=== PATIENT | male | born 1955 | race Caucasian/White ===

== ENCOUNTER → 2016-07-07 | Outpatient (CLI) | payer BC, OTHER ==
[~2016-07-07] MED LIST: ATOR-22 PO; BYS/5 PO; CETI10TA84 PO; DEXL60CA4 PO; LEVO200T6 PO; MONT1TAB5 PO; ONDA8TAB6 PO
[2016-07-07 18:37] LABS: BLOOD UREA NITROGEN 24 mg/dl (7-18); BUN/CREATININE RATIO 13.9 (10-20); CARBON DIOXIDE 28 mmol/L (21-32); CHLORIDE 104 mmol/L (98-107); GLUCOSE 81 mg/dl (70-99); POTASSIUM 4.7 mmol/L (3.5-5.1); SODIUM 139 mmol/L (136-145)
== END | disposition home or self-care (01) ==
LOC: C.LABMFLN 11:38
PROVIDERS: ATTEND Urology
DX: N17.9 Acute kidney failure, unspecified (principal)

== ENCOUNTER → 2016-08-10 | Outpatient (CLI) | payer BC ==
[2016-08-10 17:55] LABS: ALT/SGPT 27 U/L (12-78); BLOOD UREA NITROGEN 32 mg/dl (7-18); BUN/CREATININE RATIO 20.2 (10-20); CALCIUM 8.6 mg/dl (8.5-10.1); CARBON DIOXIDE 25 mmol/L (21-32); CHLORIDE 109 mmol/L (98-107); GLUCOSE 96 mg/dl (70-99); SODIUM 142 mmol/L (136-145)
[2016-08-10 17:58] LABS: ALB/GLOB RATIO 0.9 (0.9-2); ALKALINE PHOSPHATASE 79 U/L (45-117); AST/SGOT 17 U/L (15-37)
[2016-08-10 18:04] LABS: BASO % 1.2 %; BASO ABS # 0.05 K/uL (0-0.2); COMPLETE YES; EOS % 10.5 %; HEMATOCRIT 38.6 % (42-52); LYMPH % 21.4 %; LYMPH ABS # 0.88 K/uL (1.2-3.4); MEAN CELL VOLUME 82.7 fL (80-100); MEAN CORPUSCULAR HEMOGLOBIN 27.2 pg (25-34); MEAN CORPUSCULAR HGB CONC 32.9 g/dl (32-36); MONO % 17.5 %; NEUT % 49.4 %; PLATELET COUNT 146 K/uL (130-400); RED BLOOD COUNT 4.67 M/uL (4.7-6.1); WHITE BLOOD COUNT 4.11 K/uL (4.8-10.8)
== END | disposition home or self-care (01) ==
LOC: C.LABMFLN 10:55
PROVIDERS: ATTEND Internal Medicine Hematology & Oncology
DX: C82.03 Follicular lymphoma grade I, intra-abdominal lymph nodes (principal)

== ENCOUNTER 2016-08-11 07:27 | Inpatient (IN) | payer BC, OTHER ==
[2016-07-27 15:18] VITALS: BMI 38.0
--- NOTE | 2016-07-27 15:33 | PAT Medication Instructions ---
Service Date Jul 27, 2016. Current Home Medication List Atorvastatin (Lipitor), 20 MG PO QPM Cetirizine (Zyrtec), 10 MG PO HS Dexlansoprazole (Dexilant), 60 MG PO QAM Montelukast Sodium (Montelukast Sodium), 1 TAB PO HS Nebivolol Hcl (Bystolic), 5 MG PO HS Ondansetron Hcl (Zofran), 8 MG PO Q6H PRN for Nausea Medication Instructions For Your Scheduled Surgery - Take the following medications the morning of surgery with a sip of water OTHERWISE NOTHING TO EAT OR DRINK AFTER MIDNIGHT: Dexlansoprazole (Dexilant), 60 MG PO QAM Ondansetron Hcl (Zofran), 8 MG PO Q6H PRN for Nausea - Take the following medications as scheduled the night before surgery: Atorvastatin (Lipitor), 20 MG PO QPM Cetirizine (Zyrtec), 10 MG PO HS Montelukast Sodium (Montelukast Sodium), 1 TAB PO HS Nebivolol Hcl (Bystolic), 5 MG PO HS Ondansetron Hcl (Zofran), 8 MG PO Q6H PRN for Nausea If you have any questions please call us at [phone] or [phone] or [phone]
[2016-07-27 16:07] LABS: BASO % 1.1 %; BASO ABS # 0.05 K/uL (0-0.2); COMPLETE YES; EOS % 10.2 %; HEMATOCRIT 37.2 % (42-52); LYMPH % 13.6 %; LYMPH ABS # 0.63 K/uL (1.2-3.4); MEAN CORPUSCULAR HEMOGLOBIN 27.2 pg (25-34); MEAN CORPUSCULAR HGB CONC 33.6 g/dl (32-36); NEUT % 59.1 %; PLATELET COUNT 133 K/uL (130-400); RED BLOOD COUNT 4.59 M/uL (4.7-6.1); WHITE BLOOD COUNT 4.62 K/uL (4.8-10.8)
[2016-07-27 16:25] LABS: BUN/CREATININE RATIO 16.4 (10-20); CALCIUM 8.8 mg/dl (8.5-10.1); CREATININE 1.7 mg/dl (0.60-1.40); POTASSIUM 5.1 mmol/L (3.5-5.1)
[~2016-08-11] VITALS: Ht 188 cm; Wt 133.3 kg
[2016-08-11] VITALS (9 sets, daily range): BP systolic 125–157; BP diastolic 74–90; PULSE 62–76; TEMP 36.5–36.8; O2SAT 91–98; Ht 188 cm; Wt 133.3 kg
[~2016-08-11 07:27] MED LIST changes: +CEFAZOLIN 3000 MG/65 ML D5W IV SCH; +LACTATED RINGER'S 1000ML 1,000 ML IV SCH; -LEVO200T6 PO
[2016-08-11] MEDS ORDERED: LIDOCAINE/EPINEPHRINE 1% 20 ML VIAL ONE (08:46)
[2016-08-11] MEDS ORDERED: THROMBIN 5000 UNITS KIT ONE (08:47)
[2016-08-11] MEDS ORDERED: BACITRACIN OINT 15 GM TUBE ONE (08:47)
[2016-08-11] MEDS ORDERED: LACTATED RINGER'S 1000ML 1,000 ML IV PRN (08:57)
[2016-08-11] MEDS ORDERED: FENTANYL CITRATE INJ 50 MCG/1 ML 2 ML VIAL IV PRN (09:00)
[2016-08-11] MEDS ORDERED: ONDANSETRON INJ 2 MG/ML 2 ML VIAL IV PRN ×2 (09:00→12:00)
--- NOTE | 2016-08-11 09:00 | History & Physical Bridge Note ---
H&P Re-Evaluation Bridge Note: I have examined the patient, reviewed the History & Physical and in the interval since the performance of the History & Physical I have noted the following changes of clinical significance: No changes noted
[2016-08-11] MEDS ORDERED: MIDAZOLAM HCL 1 MG/ML 2ML VIAL ONE (09:03)
[2016-08-11] MEDS ORDERED: FENTANYL CITRATE INJ 50 MCG/1 ML 2 ML VIAL ONE (09:03)
[2016-08-11] MEDS ORDERED: HYDROmorphone INJ 2 MG/ML SYR/VIAL ONE (09:47)
[2016-08-11] MEDS ORDERED: PROPOFOL IV EMULSION 10 MG/ML 20 ML VIAL IV ONE (10:08)
[2016-08-11] MEDS ORDERED: ROCURONIUM BROMIDE 10 MG/ML 5 ML VIAL ONE (10:08)
[2016-08-11] MEDS ORDERED: ONDANSETRON INJ 2 MG/ML 2 ML VIAL ONE ×2 (10:08→10:51)
[2016-08-11] MEDS ORDERED: DEXAMETHASONE SOD INJ 4 MG/ML VIAL ONE (10:51)
[2016-08-11] MEDS ORDERED: SUCCINYLCHOLINE CHLORIDE 20 MG/ML 10 ML VIAL IV ONE (10:51)
[2016-08-11] MEDS ORDERED: THROMBIN 5,000 UNITS (RECOMBINANT) TOP ONE (11:47)
[2016-08-11] MEDS ORDERED: SURGICEL ABSORB HEMOSTAT 2IN X 14IN TOP ONE (11:47)
--- NOTE | 2016-08-11 11:55 | [facility] Operative Report ---
Operative Report Operative Date Aug 11, 2016. Pre-Operative Diagnosis Papillary Thyroid Cancer Post-Operative Diagnosis same Procedure(s) Performed Total Thyroidectomy with central neck dissection Surgeon Dr. Joesph Gaines Fabricator Artificial Breast Surgeon(s) Fatuma Alicea PA-C; Harrison Marcum MSIII Estimated Blood Loss 20 ml Findings 1. MNG WITH FIRM ISTHMUS NODULE 2. MULTIPLE SUSPICIOUS CENTRAL LYMPH NODES (LEVEL 6) Specimens a. Thyroid-single stitch=left superior pole;double stitich= right superior poll. b. Central neck dissection. I attest to the content of the Intraoperative Record and any orders documented therein. Any exceptions are noted below.
[2016-08-11] MEDS ORDERED: GLYCOPYRROLATE INJ 0.2 MG/ML VIAL ONE (12:36)
--- NOTE | 2016-08-11 12:58 | OPERATIVE REPORT ---
DATE OF OPERATION: 08/11/2016 PREOPERATIVE DIAGNOSIS: Papillary thyroid carcinoma. POSTOPERATIVE DIAGNOSIS: Same. PROCEDURE: Total thyroidectomy with central neck dissection. SURGEON: Dr. Gaines. PAINT ROLLER ASSEMBLER: Viktoria Alicea. ESTIMATED BLOOD LOSS: 20 mL. FINDINGS: 1. Multinodular thyroid gland with a hard nodule involving the isthmus. 2. Suspicious lymph nodes within the central neck compartment with purplish black coloration suspicious for metastatic papillary thyroid carcinoma. SPECIMENS: 1. Total thyroid for permanent pathological assessment. 2. Central neck dissection for permanent pathological assessment. DRAINS: None. COMPLICATIONS: None. INDICATIONS FOR THE PROCEDURE: The patient is a 61-year-old male who has a history of renal cell carcinoma and intraoperatively diagnosed follicular lymphoma, who on his tumor surveillance had a CT PET scan which showed some suspicious thyroid nodules. His medical oncologist, Dr. Dowling, ordered an ultrasound guided fine needle aspiration biopsy of a suspicious isthmus nodule and this was suspicious for papillary thyroid carcinoma. The patient presents for the above-mentioned procedure on an inpatient elective basis. DETAILS OF PROCEDURE: After informed consent had been obtained from the patient, the patient was wheeled to the operating room and placed on the operating table in the supine position. Monitors were placed after induction of general endotracheal anesthesia with a size 7 nerve integrity monitored endotracheal tube. The patient's head and neck were gently extended and a marking pen was used to outline the planned 5 cm incision in a natural skin crease 2 fingerbreadths above the level of clavicles. A total of 3 mL of 1% lidocaine with 1:100,000 epinephrine used to inject the skin and subcutaneous tissues overlying the planned incision site. The skin of the neck and chest were then prepped and draped in the usual sterile fashion. A #15 scalpel was then used to make the incision through the skin, subcutaneous tissue, and platysma. Subplatysmal flaps were raised superiorly to the level of thyroid notch and inferiorly to the level of clavicles. The median raphe of the strap muscles was divided using Bovie electrocautery. The strap muscles were retracted laterally and the right thyroid lobe was first addressed. The middle thyroid vein, as well as superior and inferior thyroid vascular pedicles were divided adjacent to the thyroid capsule using a Harmonic scalpel. Dissection was carried lateral to medial with care to identify and preserve the superior and inferior parathyroid candidates. Of note, it was difficult to identify the right recurrent laryngeal nerve due to the patient's extensive adipose tissue. However, the nerve monitor did not go off at all during the dissection. The left side was then addressed in a similar fashion. There was a large pyramidal lobe that was also dissected superiorly off of the trachea. The thyroid gland was from the trachea at Sal's ligament using a Harmonic scalpel. Of note, the patient had a small multinodular goiter with a firm thyroid nodule involving the isthmus posteriorly. The specimen was oriented and sent off for permanent pathological assessment. The central compartment of the neck was inspected and there were several purplish black lymph nodes that were suspicious for metastatic papillary thyroid carcinoma. A central neck dissection was performed using primarily a Harmonic scalpel going from the limits of dissection laterally from the carotid artery to the contralateral carotid artery and from the cricoid cartilage down to the mediastinum. Of note, most of the suspicious lymph nodes were deep within the mediastinal fat tissue. The largest lymph nodes grossly measured approximately 1-1.5 cm in greatest dimension. It looked as if there were 2-3 suspicious nodes grossly. The central neck dissection was sent off for permanent pathological assessment. There were 2 separate specimens obtained, as there was a very deep mediastinal node that was dissected and sent as part of the specimen. The wound was then copiously irrigated and suctioned. Bipolar electrocautery was used to achieve adequate hemostasis. Hemostasis was confirmed with a Valsalva maneuver. Small pieces of Surgicel followed by topical spray thrombin were placed into the bilateral tracheoesophageal grooves for added hemostatic effect. The strap muscles were then reapproximated using a simple running interlocked 3-0 Vicryl suture. The platysma was then closed with several deep 4-0 Monocryl sutures. The skin was then closed with a simple running subcuticular 5-0 Monocryl suture. The incision was cleansed and dried. Dermabond was applied to the incision. This marked the end of the case. The patient tolerated the procedure well. There were no apparent complications. The patient was extubated and transferred to recovery room in stable condition. I attest to the content of the Intraoperative Record and any orders documented therein. Any exceptio ns are noted below.
--- NOTE | 2016-08-11 13:05 | Anesthesiology Progress Note ---
Anesthesia Post Op Note Date & Time Aug 11, 2016 at 13:04 Vital Signs Pain Intensity: 0 Vital Signs Past 12 Hours Date Time Temp Pulse Resp B/P Pulse Ox O2 Delivery O2 Flow Rate FiO2 08/11/16 12:58 67 16 08/11/16 12:58 67 16 158/91 93 08/11/16 12:53 64 15 156/94 93 08/11/16 12:53 66 15 08/11/16 12:52 68 16 94 08/11/16 12:52 68 16 08/11/16 12:48 158/87 08/11/16 12:47 61 16 97 08/11/16 12:47 61 16 08/11/16 12:43 153/97 08/11/16 12:42 66 16 08/11/16 12:42 67 16 98 08/11/16 12:38 151/98 08/11/16 12:37 70 14 97 08/11/16 12:37 68 14 08/11/16 12:33 154/103 08/11/16 12:32 69 14 08/11/16 12:32 36.0 68 16 165/97 100 Mask 10 08/11/16 12:32 70 14 97 08/11/16 07:50 36.8 76 16 157/78 97 Room Air Notes Mental Status: alert / awake / arousable, participated in evaluation Pt Amnestic to Procedure: Yes Nausea / Vomiting: adequately controlled Pain: adequately controlled Airway Patency, RR, SpO2: stable & adequate BP & HR: stable & adequate Hydration State: stable & adequate Anesthetic Complications: no major complications apparent Pt doing well.
[2016-08-11] MEDS ORDERED: LACTATED RINGER'S 1000ML 1,000 ML IV SCH (15:00)
[2016-08-11] MEDS: HYDROCODONE/ACETAMOPHEN 5/325MG TAB PO PRN ×2 (16:29→21:28)
[2016-08-11 18:39] LABS: CALCIUM 8.6 mg/dl (8.5-10.1); MAGNESIUM 1.9 mg/dl (1.8-2.4); PHOSPHORUS 2.9 mg/dl (2.5-4.9)
[2016-08-11] MEDS ORDERED: NURSING DECISION MEDICATION ORDER SCH (20:00)
[2016-08-12 01:21] LABS: CALCIUM 8.1 mg/dl (8.5-10.1); MAGNESIUM 1.8 mg/dl (1.8-2.4); PHOSPHORUS 3.7 mg/dl (2.5-4.9)
[2016-08-12 03:41] VITALS: BP 142/75; PULSE 65; TEMP 36.5; O2SAT 91
[2016-08-12] MEDS ORDERED: LEVOTHYROXINE 200 MCG TAB PO SCH (06:00)
--- NOTE | 2016-08-12 06:12 | Medical Student: [facility] ---
Medical Student Progress Note Mr. Pugh is 1 day s/p total thyroidectomy and central neck dissection by Dr. Gaines. He is feeling good today and is not having any pain. He has not had pain medication since last night. He is tolerating mechanical soft diet. He is ambulating to bathroom to urinate independently. He reports not having any bowel movements though nursing has one small BM recorded. I/O 1750/1395 voiding on own. No drains. He is on 200mcg Levothyroxine. His last calcium level overnight was 8.1, down from 8.6 before. Denies numbness , tingling, spasms or confusion. Phosphorus 3.7, Mg 1.8, albumin 3.4. ROS: Denies fever, chills, cp, sob, nausea, vomiting, abdominal pain, calf tenderness. VS T 36.5, HR 65, RR 18, BP 142/75, O2 91 RA PE: gen: NAD, a&ox3, resting comfortably in bed HEENT: PERRLA, EOMI, 5cm horizontal incision at mid-neck c/d/i, slight hoarseness to voice, mucus membranes moist Cardiac: RRR, no murmurs, rubs or gallops Lungs: CTAB, no wheezes, rales or ronchi Abd: soft, nontender, no hepatosplenomegaly, hypoactive bowel sounds Ext: no calf tenderness, sensation grossly intact BUE and BLE Assessment: Mr. Pugh is stable 1 day s/p total thyroidectomy and central neck dissection, despite slightly low calcium 8.1. Plan: 1. Calcium 8.1, trending down. Consider PO calcium supplement. Recheck calcium, mag, phosphorus and albumin level this AM. Pending stable levels, consider d/c to home with clinic f/u in 2 weeks. 2. Continue routine post-op care, advance diet to mechanical softs as tolerated (Harrison Marcum) AGREE WITH MARITZA CASON NOTE ABOVE. PATIENT WITHOUT ANY COMPLAINTS THIS MORNING. VOICE WNL. INCISION C/D/I WITHOUT HEMATOMA. CALCIUM MILDLY LOW AT 8.1. WILL CHECK 6AM LABS AND DECIDE ON CALCIUM/VIT. D SUPPLEMENTATION AT THAT TIME. ANTICIPATE D/C LATER TODAY. (Joesph Gaines MD)
[2016-08-12 07:08] LABS: CALCIUM 8.3 mg/dl (8.5-10.1); PHOSPHORUS 4.5 mg/dl (2.5-4.9)
--- NOTE | 2016-08-12 07:15 | Discharge Instructions ---
Discharge Instructions Admission Reason for Admission: Thyroid Cancer Discharge Discharge Diagnosis / Problem: SAME Discharge Goals Goal(s): Improve disease control Activity Recommendations Activity Limitations: as noted below 1. MAY TAKE UP TO 1-2WEEKS OFF FROM WORK IF NEEDED 2. KEEP INCISION DRY FOR 1WEEK 3. LIGHT ACTIVITY FOR 2WEEKS 4. NO DRIVING WHILE ON NARCOTIC PAIN MEDS . Instructions / Follow-Up Instructions / Follow-Up CALL WITH ANY NUMBNESS/TINGLING ALONG LIPS/FINGERS/TOES AND/OR MUSCLE SPASMS/ CRAMPS Current Hospital Diet Patient's current hospital diet: Low Fiber Diet Discharge Diet Recommended Diet: Regular Diet Procedures Procedures Performed: Total Thyroidectomy with central neck dissection Pending Studies Studies pending at discharge: no Medical Emergencies . Who to Call and When: Medical Emergencies: If at any time you feel your situation is an emergency, please call 911 immediately. . Non-Emergent Contact Non-Emergency issues call your: Surgeon . . "Provider Documentation" section prepared by Joesph Gaines. VTE Core Measure Inpt VTE Proph given/why not?: SCD's
--- NOTE | 2016-08-12 07:33 | DISCHARGE SUMMARY ---
DATE OF DISCHARGE: 08/12/2016. ADMISSION DIAGNOSIS: Thyroid cancer. DISCHARGE DIAGNOSIS: Same. HOSPITAL COURSE: The patient is a 61-year-old male who was incidentally found to have suspicious lesions in his thyroid gland on a CT PET scan for surveillance of follicular lymphoma and primary clear cell carcinoma of the left kidney. He underwent ultrasound guidance fine needle aspiration biopsy of suspicious thyroid nodule which unfortunately showed papillary thyroid carcinoma. He presents for total thyroidectomy. The patient was taken to the operating room on 08/11/2016 for total thyroidectomy. Intraoperatively there were some suspicious nodes within the level 6 and a central neck dissection was performed along with the total thyroidectomy. Postoperatively he did well and had a normal voice. He had a mildly low calcium that went from 8.6 to 8.1 and then increased to 8.3. He was therefore discharged to home on postoperative day #1 without any calcium or vitamin D supplementation. He was asked to call my office if he develops any numbness or tingling along his lips, fingers, or toes and/or any involuntary muscle spasms or cramping. He should keep his incision dry for 1 week. He has a postoperative appointment on postoperative day #6. He was started on Synthroid 200 mcg based on his weight. He has a new patient appointment with endocrinology as well in approximately 2 weeks. He was discharged to home in satisfactory condition with the new medications of Synthroid 200 mcg daily as well as [place] 5 mg/325 mg 1-2 tablets p.o. q. 4 hours p.r.n.
[2016-08-12 07:46] VITALS: BP 122/68; PULSE 91; TEMP 36.5; O2SAT 91
[2016-08-12 10:45] VITALS: BP 122/68; PULSE 91; TEMP 36.5; O2SAT 91
[2016-08-26] MEDS ORDERED: LEVO200T6 PO (14:10)
== END 2016-08-12 11:50 | disposition home or self-care (01) | DRG 626 ==
LOC: ENRESERVDT → ENRESERVTM → C.ACU 07:27 → C.MSN 12:57
PROC: 0GTK0ZZ Resection of Thyroid Gland, Open Approach (ICD-10-PCS; principal; 2016-08-11 09:15)
PROC: 07B20ZX Excision of Left Neck Lymphatic, Open Approach, Diagnostic (ICD-10-PCS; principal; 2016-08-11 09:15)
PROC: 07B10ZX Excision of Right Neck Lymphatic, Open Approach, Diagnostic (ICD-10-PCS; principal; 2016-08-11 09:15)
DX: C73 Malignant neoplasm of thyroid gland (principal); C85.90 Non-Hodgkin lymphoma, unspecified, unspecified site; E04.2 Nontoxic multinodular goiter; N18.9 Chronic kidney disease, unspecified; I12.9 Hypertensive chronic kidney disease with stage 1 through stage 4 chronic kidney disease, or unspecified chronic kidney disease; K21.9 Gastro-esophageal reflux disease without esophagitis; E78.00 Pure hypercholesterolemia, unspecified; N40.0 Benign prostatic hyperplasia without lower urinary tract symptoms; J30.9 Allergic rhinitis, unspecified; G47.33 Obstructive sleep apnea (adult) (pediatric); E66.9 Obesity, unspecified; Z99.89 Dependence on other enabling machines and devices; Z90.5 Acquired absence of kidney; Z68.38 Body mass index [BMI] 38.0-38.9, adult; Z85.528 Personal history of other malignant neoplasm of kidney; Z87.891 Personal history of nicotine dependence; Z79.899 Other long term (current) drug therapy

== ENCOUNTER → 2016-08-26 | Outpatient (CLI) | payer BC ==
[~2016-08-26] MED LIST changes: -CEFAZOLIN 3000 MG/65 ML D5W IV SCH; -LACTATED RINGER'S 1000ML 1,000 ML IV SCH; +LEVO200T6 PO
[2016-08-26 13:48] VITALS: BP 123/83; PULSE 84; TEMP 36.8; O2SAT 92
--- NOTE | 2016-08-26 15:46 | Radiation Oncology Follow-Up ---
Radiation Oncology Follow-Up Date of Visit Aug 26, 2016. (Zuleika Cheema PA-C) Radiation Completion Date 07/26/16 (Zuleika Cheema PA-C) Diagnosis (1) Follicular lymphoma Onset Date: 04/08/2016 Stage: l Permanent Comment: Incidental finding of lymphoma at the time of nephrectomy and lymph node evaluation. 04/08/2016. Status post completion of radiation therapy 07/26/2015 received 3000 cGy Last Edited By: Zuleika Cheema on Aug 02, 2016 13:02 (2) Primary clear cell carcinoma of left kidney Onset Date: 04/08/2016 Stage: l Permanent Comment: Status post left nephrectomy 04/08/2016 Last Edited By: Zuleika Cheema on Aug 02, 2016 13:03 (3) Thyroid cancer Onset Date: 06/22/2016 Location: isthmus and left lobe Histology Subtype: papillary Stage: lll Permanent Comment: Abnormal finding on PET scan Status post FNA 06/22/2016 revealing papillary carcinoma Status post total thyroidectomy Stage pT3 pN1a M0 Plan for radioactive iodine Last Edited By: Zuleika Cheema on Aug 26, 2016 15:36 (Zuleika Cheema PA-C) History of Present Illness Mr. Pugh is a 61-year-old gentleman who recently presented with hematuria. He was in consultation by Dr. Antony Olvera. He subsequently underwent a CT urogram on 04/10/2016 which revealed a 6.5 cm heterogeneously enhancing mass arising from the interpolar left kidney. The CT scan did not show any evidence of a retroperitoneal adenopathy or evidence of metastatic disease. He subsequently had a CT chest on 03/22/2016 which showed no evidence of any metastatic disease. The patient subsequently underwent a left radical nephrectomy and lymph node dissection on 04/08/2016 which revealed a clear cell renal cell carcinoma of the left kidney measuring 5 cm in the greatest dimension that was unifocal. The tumor was grade 2, there was no evidence of lymphovascular space invasion and the margins were negative. The tumor was confined to the kidney. It was staged as a pT1bN0. 5 lymph nodes were examined and there was no evidence of metastatic renal cell carcinoma. However , pathology did note that to hilar lymph nodes in the main kidney specimen and 3 lymph nodes in the separate left hilar lymph node resection did reveal evidence of follicular lymphoma that was low grade. The patient subsequently was referred to Dr. Trevor Dowling from medical oncology who recommended no adjuvant therapy for the renal cancer but did recommend a staging PET/CT scan and bone marrow biopsy for the follicular lymphoma. The PET/CT scan was completed on 05/17/2016 which revealed several foci of increased uptake in the thyroid gland but no other evidence of distant metastatic disease. The patient did also have a bone marrow biopsy completed on 06/01/2016 which only revealed mild normocytic hypochromatic anemia but no evidence of lymphomatous involvement. Dr. Dowling recommended consultation with radiation therapy regarding management of the follicular lymphoma. We are now seeing the patient in consultation to discuss the role of radiation therapy. Overall, the patient is doing relatively well. He denies any constitutional symptoms for lymphoma including drenching night sweats/fevers or weight loss. The patient has no other complaints at this point. His case was discussed at tumor board. Ultimately the decision was to treat with radiation alone to the periaortic lymph nodes (Zuleika Cheema PA-C) Interim History He's been doing well over the past month. He does have fatigue. He denied any abdominal discomfort. His had no nausea or vomiting. There no changes in bowel habits. He had been found to have an abnormality on his PET scan which led to an FNA of the thyroid on 06/22/2016. This unfortunately revealed a papillary carcinoma. He then underwent a total thyroidectomy 08/11/2016. Pathology revealed papillary carcinoma. The lesion was 2 cm in size. Margins were involved by carcinoma at the isthmus. There was extra thyroid extension. His staging was pT3 pN1a. He has been referred to endocrinology. There are plans for him to undergo radioactive iodine therapy. His only complaint is fatigue. He therefore not as active as he had been. He has gained approximately 30 pounds since April. He is on thyroid hormone replacement. (Zuleika Cheema PA-C) Allergies Coded Allergies: No Known Allergies (Verified , NONE, 08/11/16) Home Medications Scheduled Atorvastatin (Lipitor), 20 MG PO QPM Cetirizine (Zyrtec), 10 MG PO HS Dexlansoprazole (Dexilant), 60 MG PO QAM Levothyroxine Sodium (Levothyroxine Sodium), 1 TAB PO DAILY Montelukast Sodium (Montelukast Sodium), 1 TAB PO HS Nebivolol Hcl (Bystolic), 5 MG PO HS Review of Systems Gastrointestinal: Symptoms: WNL Oral: Symptoms: No Problems Respiratory: Symptoms: WNL Urinary: Symptoms: WNL Skin: Symptoms: No Problems (Zuleika Cheema PA-C) Physical Exam Vital Signs Date Time Temp Pulse Resp B/P Pulse Ox O2 Delivery O2 Flow Rate FiO2 08/26/16 13:48 36.8 84 16 123/83 92 Fatigue: None General Appearance: no apparent distress Eyes: normal inspection, EOMI ENT: hearing grossly normal Neck: + pertinent finding (well-healed incision of the anterior neck. There is no erythema or edema. There are no signs of infection. There is no ecchymosis. ) Respiratory/Chest: lungs clear, no respiratory distress, no accessory muscle use Cardiovascular: regular rate, rhythm, no gallop, no murmur Abdomen: non tender, soft, no organomegaly Neurologic/Psychiatric: no motor/sensory deficits, alert, normal mood/affect Skin: warm/dry Lymphatic: no adenopathy (Zuleika Cheema PA-C) Laboratory Studies Test 06/10/16 14:35 06/10/16 16:50 07/27/16 15:50 08/10/16 16:34 Total Bilirubin 0.5 mg/dl (0.2-1) 0.3 mg/dl (0.2-1) Direct Bilirubin 0.2 mg/dl (0-0.2) Aspartate Amino Transferase (AST) 14 U/L (15-37) 17 U/L (15-37) Alanine Aminotransferase (ALT) 19 U/L (12-78) 27 U/L (12-78) Alkaline Phosphatase 78 U/L (45-117) 79 U/L (45-117) Total Protein 7.3 gm/dl (6.4-8.2) 7.5 gm/dl (6.4-8.2) Globulin 4.2 gm/dl (2.5-4.0) 3.9 gm/dl (2.5-4.0) Albumin/Globulin Ratio 0.7 (0.9-2) 0.9 (0.9-2) Influenza Type A (RT-PCR) Neg for Influ A (NEG) Influenza Type B (RT-PCR) Neg for Influ B (NEG) White Blood Count 4.62 K/uL (4.8-10.8) 4.11 K/uL (4.8-10.8) Red Blood Count 4.59 M/uL (4.7-6.1) 4.67 M/uL (4.7-6.1) Hemoglobin 12.5 g/dL (14.0-18.0) 12.7 g/dL (14.0-18.0) Hematocrit 37.2 % (42-52) 38.6 % (42-52) Mean Corpuscular Volume 81.0 fL (80-100) 82.7 fL (80-100) Mean Corpuscular Hemoglobin 27.2 pg (25-34) 27.2 pg (25-34) Mean Corpuscular Hemoglobin Concent 33.6 g/dl (32-36) 32.9 g/dl (32-36) Platelet Count 133 K/uL (130-400) 146 K/uL (130-400) Mean Platelet Volume 10.0 fL (7.4-10.4) 10.0 fL (7.4-10.4) Neutrophils (%) (Auto) 59.1 % 49.4 % Lymphocytes (%) (Auto) 13.6 % 21.4 % Monocytes (%) (Auto) 16.0 % 17.5 % Eosinophils (%) (Auto) 10.2 % 10.5 % Basophils (%) (Auto) 1.1 % 1.2 % Neutrophils # (Auto) 2.73 K/uL (1.4-6.5) 2.03 K/uL (1.4-6.5) Lymphocytes # (Auto) 0.63 K/uL (1.2-3.4) 0.88 K/uL (1.2-3.4) Monocytes # (Auto) 0.74 K/uL (0.11-0.59) 0.72 K/uL (0.11-0.59) Eosinophils # (Auto) 0.47 K/uL (0-0.5) 0.43 K/uL (0-0.5) Basophils # (Auto) 0.05 K/uL (0-0.2) 0.05 K/uL (0-0.2) RDW Standard Deviation 43.2 fL (36.4-46.3) 45.8 fL (36.4-46.3) RDW Coefficient of Variation 14.7 % (11.5-14.5) 15.2 % (11.5-14.5) Immature Granulocyte % (Auto) 0.0 % 0.0 % Immature Granulocyte # (Auto) 0.00 K/uL (0.00-0.02) 0.00 K/uL (0.00-0.02) Sodium Level 143 mmol/L (136-145) 142 mmol/L (136-145) Potassium Level 5.1 mmol/L (3.5-5.1) 5.0 mmol/L (3.5-5.1) Chloride Level 107 mmol/L (98-107) 109 mmol/L (98-107) Carbon Dioxide Level 28 mmol/L (21-32) 25 mmol/L (21-32) Anion Gap 8.0 mmol/L (3-11) 8.0 mmol/L (3-11) Blood Urea Nitrogen 28 mg/dl (7-18) 32 mg/dl (7-18) Creatinine 1.70 mg/dl (0.60-1.40) 1.60 mg/dl (0.60-1.40) Est Creatinine Clear Calc Drug Dose 67.1 ml/min Estimated GFR () 49.7 53.5 Estimated GFR (Non- 42.9 46.1 BUN/Creatinine Ratio 16.4 (10-20) 20.2 (10-20) Random Glucose 87 mg/dl (70-99) 96 mg/dl (70-99) Lactate Dehydrogenase 126 U/L (87-241) Test 08/12/16 00:18 08/12/16 06:13 Calcium Level 8.1 mg/dl (8.5-10.1) 8.3 mg/dl (8.5-10.1) Phosphorus Level 3.7 mg/dl (2.5-4.9) 4.5 mg/dl (2.5-4.9) Magnesium Level 1.8 mg/dl (1.8-2.4) 2.0 mg/dl (1.8-2.4) Albumin 3.4 gm/dl (3.4-5.0) 3.4 gm/dl (3.4-5.0) (Zuleika Cheema PA-C) Assessment & Plan Plan: The patient is also seen today by Dr. Quispe. He'll be undergoing radioactive iodine therapy. He has a follow-up appointment with Dr. Dowling as well as Dr. Olvera. In reviewing their information the patient will have recheck scanning approximately every 6 months for the next 2 years. He may return to our office as needed. He may call if he has a questions or concerns we'll be happy to see him. There are plans for him to see Dr. Becker in the future for genetic counseling. (Zuleika Cheema PA-C) I agree with note created by Zuleika Cheema PA-C. I reviewed the patient's chart and information with her. I have examined and evaluated the patient. I reviewed relevant clinical information and answered the patient's and/or family' s questions. (Veeral. Quispe MD) Total Time In Follow-Up I spent 20 minutes speaking to the patient performing examination. I spent 15 minutes reviewing information in completing this note. (Zuleika Cheema PA-C) I spent 15 minutes examining and counseling the patient. (Veeral. Quispe MD) Copy To Ramses Barnes PA-C; Joesph Gaines MD; Antony Olvera MD, Urology; Trevor Bae MD
== END | disposition home or self-care (01) ==
LOC: C.ONC 13:41
PROVIDERS: ATTEND Radiology Radiation Oncology
DX: Z08 Encounter for follow-up examination after completed treatment for malignant neoplasm (principal); Z92.3 Personal history of irradiation; Z85.72 Personal history of non-Hodgkin lymphomas

== ENCOUNTER → 2016-08-31 | Outpatient (CLI) | payer BC ==
[~2016-08-31] MED LIST changes: -ONDA8TAB6 PO
[2016-08-31 18:49] LABS: BLOOD UREA NITROGEN 29 mg/dl (7-18); BUN/CREATININE RATIO 17.9 (10-20); CALCIUM 8.7 mg/dl (8.5-10.1); CARBON DIOXIDE 24 mmol/L (21-32); CHLORIDE 105 mmol/L (98-107); GLUCOSE 93 mg/dl (70-99); PHOSPHORUS 3.5 mg/dl (2.5-4.9); POTASSIUM 4.3 mmol/L (3.5-5.1); SODIUM 137 mmol/L (136-145)
[2016-08-31 18:51] LABS: HEMATOCRIT 37.4 % (42-52); MEAN CELL VOLUME 79.4 fL (80-100); MEAN CORPUSCULAR HEMOGLOBIN 27.4 pg (25-34); MEAN CORPUSCULAR HGB CONC 34.5 g/dl (32-36); MEAN PLATELET VOLUME 9.9 fL (7.4-10.4); PLATELET COUNT 153 K/uL (130-400); RED BLOOD COUNT 4.71 M/uL (4.7-6.1); WHITE BLOOD COUNT 4.55 K/uL (4.8-10.8)
[2016-08-31 19:14] LABS: URINE APPEARANCE CLEAR (CLEAR); URINE BILIRUBIN NEG (NEG); URINE COLOR YELLOW; URINE EPITHELIAL CELL AUTO 0-5 /lpf (0-5); URINE NITRITE NEG (NEG); URINE SPECIFIC GRAVITY 1.024 (1.000-1.030); UROBILINOGEN NEG (NEG)
[2016-08-31 19:35] LABS: MANUAL MICROSCOPIC REQUIRED? NO; REVIEW REQ? NO
== END | disposition home or self-care (01) ==
LOC: C.LABMFLN 11:36
PROVIDERS: ATTEND Internal Medicine Nephrology
DX: N17.9 Acute kidney failure, unspecified (principal)

== ENCOUNTER → 2016-10-22 | Outpatient (CLI) | payer BC ==
[2016-10-22 18:09] LABS: ALT/SGPT 35 U/L (12-78); AST/SGOT 18 U/L (15-37); BLOOD UREA NITROGEN 27 mg/dl (7-18); BUN/CREATININE RATIO 16.6 (10-20); CALCIUM 8.7 mg/dl (8.5-10.1); CARBON DIOXIDE 29 mmol/L (21-32); CHLORIDE 108 mmol/L (98-107); GLUCOSE 98 mg/dl (70-99); POTASSIUM 4.4 mmol/L (3.5-5.1); SODIUM 141 mmol/L (136-145)
[2016-10-22 18:11] LABS: ALB/GLOB RATIO 0.9 (0.9-2); ALKALINE PHOSPHATASE 86 U/L (45-117)
== END | disposition home or self-care (01) ==
LOC: C.LABMFLN 11:46
PROVIDERS: ATTEND Urology
DX: N17.9 Acute kidney failure, unspecified (principal)

== ENCOUNTER → 2016-10-26 | Outpatient (CLI) | payer BC ==
--- NOTE | 2016-10-26 15:41 | DIAGNOSTIC IMAGING REPORT ---
CHEST 2 VIEWS ROUTINE CLINICAL HISTORY: N17.9 Acute kidney injury SHORTNESS OF BREATH COMPARISON STUDY: 06/08/2016 FINDINGS: The cardiac and mediastinal contours remain stable. There is stable elevation/eventration of the right hemidiaphragm. There is no failure. There is no focal pulmonary consolidation. There is stable right basilar atelectasis.[ IMPRESSION: Stable elevation/eventration of the right hemidiaphragm. No acute findings. Electronically signed by: Leopoldo Jiang M.D. 10/26/2016 3:39 PM Dictated Date/Time: 10/26/2016 3:38 PM
== END | disposition home or self-care (01) ==
LOC: C.RAD 15:05
PROVIDERS: ATTEND Urology
DX: N17.9 Acute kidney failure, unspecified (principal)

== ENCOUNTER → 2016-11-10 | Outpatient (CLI) | payer BC ==
[2016-11-10 17:50] LABS: BASO % 0.5 %; BASO ABS # 0.02 K/uL (0-0.2); COMPLETE YES; EOS % 5.5 %; LYMPH % 36.1 %; MEAN CELL VOLUME 81.8 fL (80-100); MEAN CORPUSCULAR HEMOGLOBIN 26.1 pg (25-34); MEAN PLATELET VOLUME 10.2 fL (7.4-10.4); MONO % 10.4 %; NEUT % 47.5 %; PLATELET COUNT 182 K/uL (130-400); RED BLOOD COUNT 5.01 M/uL (4.7-6.1); WHITE BLOOD COUNT 4.15 K/uL (4.8-10.8)
[2016-11-10 18:27] LABS: ALT/SGPT 33 U/L (12-78); AST/SGOT 18 U/L (15-37); BLOOD UREA NITROGEN 28 mg/dl (7-18); BUN/CREATININE RATIO 17.8 (10-20); CALCIUM 8.7 mg/dl (8.5-10.1); CARBON DIOXIDE 29 mmol/L (21-32); CHLORIDE 107 mmol/L (98-107); GLUCOSE 106 mg/dl (70-99); POTASSIUM 4.4 mmol/L (3.5-5.1); SODIUM 140 mmol/L (136-145)
[2016-11-10 18:30] LABS: ALB/GLOB RATIO 1.1 (0.9-2); ALKALINE PHOSPHATASE 80 U/L (45-117)
== END | disposition home or self-care (01) ==
LOC: C.LABMFLN 13:21
PROVIDERS: ATTEND Internal Medicine Hematology & Oncology
DX: C82.03 Follicular lymphoma grade I, intra-abdominal lymph nodes (principal)

== ENCOUNTER → 2017-02-10 | Outpatient (CLI) | payer BC ==
[2017-02-10 18:12] LABS: ALT/SGPT 31 U/L (12-78); AST/SGOT 22 U/L (15-37); BLOOD UREA NITROGEN 30 mg/dl (7-18); BUN/CREATININE RATIO 20.2 (10-20); CALCIUM 8.9 mg/dl (8.5-10.1); CARBON DIOXIDE 27 mmol/L (21-32); CHLORIDE 106 mmol/L (98-107); GLUCOSE 78 mg/dl (70-99); POTASSIUM 4.5 mmol/L (3.5-5.1); SODIUM 139 mmol/L (136-145)
[2017-02-10 18:15] LABS: ALKALINE PHOSPHATASE 76 U/L (45-117); BASO % 0.4 %; BASO ABS # 0.02 K/uL (0-0.2); COMPLETE YES; EOS % 4.5 %; HEMATOCRIT 40.6 % (42-52); IG% 0.2 %; LYMPH % 31.9 %; LYMPH ABS # 1.63 K/uL (1.2-3.4); MEAN CELL VOLUME 80.7 fL (80-100); MEAN CORPUSCULAR HEMOGLOBIN 26.4 pg (25-34); MEAN CORPUSCULAR HGB CONC 32.8 g/dl (32-36); MEAN PLATELET VOLUME 10.6 fL (7.4-10.4); MONO % 11.5 %; NEUT % 51.5 %; PLATELET COUNT 168 K/uL (130-400); RED BLOOD COUNT 5.03 M/uL (4.7-6.1); WHITE BLOOD COUNT 5.11 K/uL (4.8-10.8)
== END | disposition home or self-care (01) ==
LOC: C.LABMFLN 14:52
PROVIDERS: ATTEND Internal Medicine Hematology & Oncology
DX: C82.03 Follicular lymphoma grade I, intra-abdominal lymph nodes (principal)

== ENCOUNTER → 2017-02-14 | Outpatient (CLI) | payer BC ==
[~2017-02-14] MED LIST changes: +OPTIRAY 320 IV PRN
--- NOTE | 2017-02-14 09:25 | DIAGNOSTIC IMAGING REPORT ---
(CHEST) THORAX WITH CT DOSE: 2415.13 mGy.cm HISTORY: Lymphoma LYMPHOMA TECHNIQUE: Multiaxial CT images of the chest were performed following the intravenous administration of contrast. A dose lowering technique was utilized adhering to the principles of ALARA. COMPARISON: 03/18/2016. FINDINGS: stable minimal atelectatic change right base. No significant parenchymal nodularity. Several small mediastinal and hilar nodes slightly diminished in prominence in the prior study. At this time no significant adenopathy is appreciated. The thoracic aorta is normal in course and caliber. Multiple hepatic cysts are again noted. IMPRESSION: No significant abnormality identified within the chest. Improved from the prior study. No significant adenopathy at the current time. The above report was generated using voice recognition software. It may contain grammatical, syntax or spelling errors. Electronically signed by: Faizan Bonner M.D. 02/14/2017 9:24 AM Dictated Date/Time: 02/14/2017 9:20 AM
--- NOTE | 2017-02-14 09:31 | DIAGNOSTIC IMAGING REPORT ---
CT SCAN OF THE ABDOMEN AND PELVIS WITH IV CONTRAST CLINICAL HISTORY: Lymphoma. COMPARISON STUDY: Abdominal CT dated 04/17/2016. PET/CT dated 05/17/2016. TECHNIQUE: Following the IV administration of 93 cc of Optiray 320, CT scan of the abdomen and pelvis is performed from the lung bases to the proximal femora. Images are reviewed in the axial, sagittal, and coronal planes. IV contrast was administered without complication. Automated dose control exposure was utilized. A dose lowering technique was utilized adhering to the principles of ALARA. FINDINGS: Lung bases: The heart is normal in size and without pericardial effusion. There is elevation of the right hemidiaphragm with associated atelectasis. The lung bases are otherwise clear. There is a small hiatal hernia. Liver: The contrast-enhanced liver is enlarged, measuring 23.7 cm in length. The liver demonstrates diffusely diminished attenuation consistent with hepatic steatosis. There is no intrahepatic biliary ductal dilatation. The hepatic veins and portal veins are patent. There are numerous hepatic cysts measure up to 3.1 cm. Additional subcentimeter hypodensities also likely represent cysts but are too small for definitive characterization. Gallbladder: Surgically absent noting clips in the gallbladder fossa. Spleen: Normal in size and attenuation measure 11.7 cm in length. Pancreas: Unremarkable. Adrenal glands: Unremarkable. Kidneys: The left kidney is surgically absent. The contrast enhanced right kidney is normal in size and without hydronephrosis. The right kidney enhances homogeneously. Abdominal vasculature: The abdominal aorta is normal in course and caliber noting mild atherosclerotic calcification. Bowel: The small bowel and colon are normal in course and caliber. The appendix is well-visualized and normal. Peritoneum: There is no intraperitoneal free air or abdominal ascites. There is a small fat-containing umbilical hernia. Lymphadenopathy: None. Pelvic viscera: The bladder, prostate, and seminal vesicles are normal as visualized. Skeletal structures: The skeletal structures are osteopenic. Mild lumbosacral spondylosis is observed. No lytic or blastic lesions are seen. IMPRESSION: 1. There are no pathologically enlarged lymph nodes identified in the abdomen or pelvis. 2. The spleen is normal in size. 3. No acute infectious or inflammatory findings are identified. 4. Hepatomegaly and hepatic steatosis. 5. Status post left nephrectomy. 6. Additional findings as above. Electronically signed by: Henri Gutierrez M.D. 02/14/2017 9:29 AM Dictated Date/Time: 02/14/2017 9:23 AM
== END | disposition home or self-care (01) ==
LOC: C.CTS 08:51
PROVIDERS: ATTEND Internal Medicine Hematology & Oncology
DX: C73 Malignant neoplasm of thyroid gland (principal); C82.03 Follicular lymphoma grade I, intra-abdominal lymph nodes; R16.0 Hepatomegaly, not elsewhere classified; K76.0 Fatty (change of) liver, not elsewhere classified; Z90.5 Acquired absence of kidney

== ENCOUNTER → 2017-02-21 | Outpatient (CLI) | payer BC ==
[~2017-02-21] MED LIST changes: -OPTIRAY 320 IV PRN
[2017-02-21 13:56] LABS: ALT/SGPT 32 U/L (12-78); AST/SGOT 19 U/L (15-37); BLOOD UREA NITROGEN 27 mg/dl (7-18); CALCIUM 8.7 mg/dl (8.5-10.1); CARBON DIOXIDE 24 mmol/L (21-32); CHLORIDE 109 mmol/L (98-107); GLUCOSE 100 mg/dl (70-99); SODIUM 141 mmol/L (136-145)
[2017-02-21 14:00] LABS: INSULIN FASTING 25.2 mU/L (3-25)
[2017-02-21 14:06] LABS: ALB/GLOB RATIO 0.9 (0.9-2); ALKALINE PHOSPHATASE 85 U/L (45-117); PHOSPHORUS 2.9 mg/dl (2.5-4.9); THYROID STIMULATING HORMONE 0.019 uIu/ml (0.300-4.500)
[2017-02-21 14:14] LABS: ESTIMATED AVERAGE GLUCOSE 117 mg/dl; HA1C FLAG Normal (Normal)
[2017-02-21 14:30] LABS: BASO % 0.5 %; BASO ABS # 0.02 K/uL (0-0.2); COMPLETE YES; EOS % 6.3 %; HEMATOCRIT 40.7 % (42-52); IG% 0.3 %; LYMPH % 29.1 %; MEAN CELL VOLUME 79.5 fL (80-100); MEAN CORPUSCULAR HGB CONC 33.9 g/dl (32-36); MEAN PLATELET VOLUME 10.1 fL (7.4-10.4); MONO % 9.8 %; PLATELET COUNT 162 K/uL (130-400); RED BLOOD COUNT 5.12 M/uL (4.7-6.1); WHITE BLOOD COUNT 3.78 K/uL (4.8-10.8)
== END | disposition home or self-care (01) ==
LOC: C.LABMFLN 07:14
PROVIDERS: ATTEND Internal Medicine Endocrinology, Diabetes & Metabolism
DX: C73 Malignant neoplasm of thyroid gland (principal); I12.9 Hypertensive chronic kidney disease with stage 1 through stage 4 chronic kidney disease, or unspecified chronic kidney disease; N18.3 Chronic kidney disease, stage 3 (moderate)

== ENCOUNTER → 2017-03-08 | Outpatient (CLI) | payer BC ==
[2017-03-08 17:52] LABS: URINE APPEARANCE CLEAR (CLEAR); URINE BILIRUBIN NEG (NEG); URINE COLOR YELLOW; URINE NITRITE NEG (NEG); URINE SPECIFIC GRAVITY 1.017 (1.000-1.030); UROBILINOGEN NEG (NEG)
[2017-03-08 18:00] LABS: MANUAL MICROSCOPIC REQUIRED? NO; REVIEW REQ? NO
== END | disposition home or self-care (01) ==
LOC: C.LABMFLN 15:47
PROVIDERS: ATTEND Internal Medicine Nephrology
DX: N18.3 Chronic kidney disease, stage 3 (moderate) (principal)

== ENCOUNTER → 2017-04-04 | Outpatient (CLI) | payer BC ==
[2017-04-04 18:12] LABS: ALT/SGPT 33 U/L (12-78); AST/SGOT 19 U/L (15-37); BLOOD UREA NITROGEN 34 mg/dl (7-18); BUN/CREATININE RATIO 24.6 (10-20); CALCIUM 8.3 mg/dl (8.5-10.1); CARBON DIOXIDE 26 mmol/L (21-32); CHLORIDE 107 mmol/L (98-107); GLUCOSE 88 mg/dl (70-99); POTASSIUM 4.4 mmol/L (3.5-5.1); SODIUM 140 mmol/L (136-145)
[2017-04-04 18:23] LABS: ALKALINE PHOSPHATASE 83 U/L (45-117); PHOSPHORUS 3.2 mg/dl (2.5-4.9); THYROID STIMULATING HORMONE 0.018 uIu/ml (0.300-4.500)
== END | disposition home or self-care (01) ==
LOC: C.LABMFLN 14:48
PROVIDERS: ATTEND Internal Medicine Endocrinology, Diabetes & Metabolism
DX: C73 Malignant neoplasm of thyroid gland (principal); I10 Essential (primary) hypertension; C64.9 Malignant neoplasm of unspecified kidney, except renal pelvis

== ENCOUNTER → 2017-04-26 | Outpatient (CLI) | payer BC ==
--- NOTE | 2017-04-26 15:44 | DIAGNOSTIC IMAGING REPORT ---
CHEST 2 VIEWS ROUTINE CLINICAL HISTORY: C64.9 Renal cell [id number] COMPARISON STUDY: 10/26/2016 FINDINGS: The bones soft tissues and hemidiaphragms are normal. The cardiomediastinal silhouette is normal. The lungs are clear. The pulmonary vasculature is normal. IMPRESSION: Negative chest. The above report was generated using voice recognition software. It may contain grammatical, syntax or spelling errors. Electronically signed by: Faizan Bonner M.D. 04/26/2017 3:43 PM Dictated Date/Time: 04/26/2017 3:42 PM
== END | disposition home or self-care (01) ==
LOC: C.RAD 15:18
PROVIDERS: ATTEND Urology
DX: C64.9 Malignant neoplasm of unspecified kidney, except renal pelvis (principal)

== ENCOUNTER → 2017-06-01 | Outpatient (CLI) | payer BC | END | disposition home or self-care (01) | LOC: C.LABMFLN 09:02 | PROVIDERS: ATTEND Internal Medicine Endocrinology, Diabetes & Metabolism | DX: R73.03 Prediabetes (principal) ==

== ENCOUNTER → 2017-07-07 | Outpatient (CLI) | payer BC | END | disposition home or self-care (01) | LOC: C.LABMFLN 12:18 | PROVIDERS: ATTEND Internal Medicine Endocrinology, Diabetes & Metabolism | DX: E89.0 Postprocedural hypothyroidism (principal) ==

== ENCOUNTER → 2017-08-11 | Outpatient (CLI) | payer BC ==
[2017-08-11 17:46] LABS: BASO % 0.8 %; BASO ABS # 0.03 K/uL (0-0.2); EOS % 7.2 %; EOS ABS # 0.27 K/uL (0-0.5); HEMATOCRIT 40.1 % (42-52); HEMOGLOBIN 13.3 g/dL (14.0-18.0); IG# 0.01 K/uL (0.00-0.02); LYMPH % 31.3 %; LYMPH ABS # 1.18 K/uL (1.2-3.4); MEAN CELL VOLUME 84.4 fL (80-100); MEAN CORPUSCULAR HGB CONC 33.2 g/dl (32-36); MEAN PLATELET VOLUME 10.5 fL (7.4-10.4); MONO % 10.3 %; MONO ABS # 0.39 K/uL (0.11-0.59); NEUT % 50.1 %; NEUT ABS # 1.89 K/uL (1.4-6.5); PLATELET COUNT 159 K/uL (130-400); RED CELL DISTRIBUTION WIDTH CV 15.4 % (11.5-14.5); RED CELL DISTRIBUTION WIDTH SD 47.6 fL (36.4-46.3); WHITE BLOOD COUNT 3.77 K/uL (4.8-10.8)
[2017-08-11 18:07] LABS: ALBUMIN 3.7 gm/dl (3.4-5.0); ALT/SGPT 30 U/L (12-78); AST/SGOT 18 U/L (15-37); BLOOD UREA NITROGEN 40 mg/dl (7-18); CALCIUM 8.8 mg/dl (8.5-10.1); CARBON DIOXIDE 27 mmol/L (21-32); GLUCOSE 79 mg/dl (70-99); POTASSIUM 4.4 mmol/L (3.5-5.1); SODIUM 137 mmol/L (136-145)
[2017-08-11 18:09] LABS: ALKALINE PHOSPHATASE 79 U/L (45-117); TOTAL PROTEIN 7.9 gm/dl (6.4-8.2)
== END | disposition home or self-care (01) ==
LOC: C.LABMFLN 12:56
PROVIDERS: ATTEND Internal Medicine Hematology & Oncology
DX: C82.03 Follicular lymphoma grade I, intra-abdominal lymph nodes (principal)

== ENCOUNTER → 2017-09-05 | Outpatient (CLI) | payer BC ==
[2017-09-05 13:19] LABS: ALBUMIN 3.5 gm/dl (3.4-5.0); BLOOD UREA NITROGEN 36 mg/dl (7-18); CALCIUM 9.1 mg/dl (8.5-10.1); CARBON DIOXIDE 25 mmol/L (21-32); CREATININE 1.45 mg/dl (0.60-1.40); GLUCOSE 94 mg/dl (70-99); POTASSIUM 4.3 mmol/L (3.5-5.1); SODIUM 137 mmol/L (136-145)
== END | disposition home or self-care (01) ==
LOC: C.LABMFLN 09:59
PROVIDERS: ATTEND Internal Medicine Endocrinology, Diabetes & Metabolism
DX: N18.3 Chronic kidney disease, stage 3 (moderate) (principal); C73 Malignant neoplasm of thyroid gland

== ENCOUNTER → 2017-09-22 | Outpatient (CLI) | payer BC | END | disposition home or self-care (01) | LOC: C.LAB1850 13:12 | PROVIDERS: ATTEND Internal Medicine Endocrinology, Diabetes & Metabolism | DX: R53.83 Other fatigue (principal); R73.03 Prediabetes ==

== ENCOUNTER → 2017-09-26 | Outpatient (CLI) | payer BC ==
--- NOTE | 2017-09-27 08:23 | DIAGNOSTIC IMAGING REPORT ---
ULTRASOUND SOFT TISSUES NECK CLINICAL HISTORY: Status post thyroidectomy for papillary carcinoma. COMPARISON STUDY: Thyroid ultrasound dated 06/11/2016. TECHNIQUE: Real-time, grayscale, and color Doppler sonography of the thyroid bed is performed utilizing a high-frequency linear transducer. Images reviewed in the transverse and longitudinal planes. FINDINGS: The thyroid gland is surgically absent. No abnormality is identified in the right thyroid bed. There is a complex solid and cystic nodule within or inferior to the left thyroid bed. This measures 2.1 x 1.5 x 1.3 cm and shows internal flow on color imaging. This previously measured 1.8 x 1.2 x 1.2 cm. No regional lymphadenopathy is seen. IMPRESSION: 1. There are interval postoperative changes from thyroidectomy as compared to 06/11/2016. 2. No abnormality is identified in the right thyroid bed and there is no regional lymphadenopathy. 3. A solid and cystic structure within or inferior to left thyroid bed has minimally increased in size from 06/11/2016, now measuring 2.1 x 1.5 x 1.3 cm (previously measured 1.8 x 1.2 x 1.2 cm). This remains pathologically indeterminant and continued attention at follow-up is recommended. Dictated: 09/27/2017 8:05 AM Transcribed: 09/27/2017 8:23 AM ROD_Rosina Electronically signed by: Henri Gutierrez M.D. 09/27/2017 8:34 AM Dictated Date/Time: 09/27/2017 8:05 AM
== END | disposition home or self-care (01) ==
LOC: C.ULTR 07:06
PROVIDERS: ATTEND Internal Medicine Endocrinology, Diabetes & Metabolism
DX: C73 Malignant neoplasm of thyroid gland (principal)

== ENCOUNTER → 2017-10-04 | Outpatient (CLI) | payer BC ==
--- NOTE | 2017-10-04 13:40 | DIAGNOSTIC IMAGING REPORT ---
ULTRASOUND GUIDED FINE NEEDLE ASPIRATION OF 2.1 CM SOLID AND CYSTIC NODULE INFERIOR TO LEFT THYROIDECTOMY BED CLINICAL HISTORY: PAPILLARY THYROID CA, HYPOTHYROIDISM COMPARISON STUDY: Neck ultrasound September 26, 2017. PROCEDURE: Sonography of the left inferior neck demonstrated a 2.1 cm solid and cystic lesion shown on ultrasound of September 26, 2017. The solid component was targeted for fine needle aspiration. Procedure, risks and benefits were discussed with the patient and informed written consent was obtained. The procedure was performed by Dr. Palacios following a timeout. Skin was prepped and draped in sterile fashion and local anesthesia was achieved with 1% lidocaine. Under direct ultrasound guidance, 2 25-gauge fine needle aspirations of the solid component was performed. Samples were deemed preliminarily adequate by pathology. The patient tolerated the procedure well and no immediate complications were evident. IMPRESSION: Ultrasound guided fine-needle aspiration of the 2.1 cm solid and cystic lesion inferior to the left thyroidectomy bed. Electronically signed by: Servando Palacios M.D. 10/04/2017 1:39 PM Dictated Date/Time: 10/04/2017 1:36 PM
== END | disposition home or self-care (01) ==
LOC: C.ULTR 12:27
PROVIDERS: ATTEND Internal Medicine Endocrinology, Diabetes & Metabolism
DX: C73 Malignant neoplasm of thyroid gland (principal); E89.0 Postprocedural hypothyroidism

== ENCOUNTER → 2017-10-10 | Outpatient (CLI) | payer BC ==
[~2017-10-10] MED LIST changes: +OPTIRAY 320 IV PRN
--- NOTE | 2017-10-10 10:30 | DIAGNOSTIC IMAGING REPORT ---
CHEST CT WITH CONTRAST CT DOSE: 2077.85 mGycm HISTORY: Follow-up study in a patient with lymphoma. Subsequent treatment strategy TECHNIQUE: Multiaxial CT images of the chest were performed following the intravenous administration of contrast. A dose lowering technique was utilized adhering to the principles of ALARA. COMPARISON: CT chest 02/14/2017, CT abdomen and pelvis of same day. FINDINGS: No dominant thyroid nodule identified. There are several mildly prominent lymph nodes about the mediastinum and hilum which measure under 1 cm in short axis including a 9 mm subcarinal and 9 mm bilateral hilar lymph nodes. Additionally there is a single enlarged 11 mm right hilar lymph node seen on image 117 series 4 which appears unchanged from comparison study 2 on image 116 series 6. No new adenopathy about the chest identified. The heart is normal in size without pericardial effusion. Thoracic aorta is normal in both course and caliber without dissection or aneurysm. The opacified pulmonary arterial tree is within normal limits. Unchanged 6 mm nodule of the right lower lobe, image 154 series 4. No pneumothorax, pleural effusion or focal airspace consolidation. Groundglass and linear subsegmental opacities of the lung bases, right greater than left with right hemidiaphragmatic elevation unchanged suggesting areas of scarring/atelectasis. There are no suspicious pulmonary nodules identified. The central airways are patent. Multiple low attenuating lesions throughout the liver are redemonstrated measuring up to 3.4 cm suggesting hepatic cysts. No acute abnormality of the imaged upper abdomen. Soft tissues are within normal limits. The bones appear intact. Mild multilevel endplate degenerative changes about the spine. No suspicious lytic or blastic bony lesions are identified. IMPRESSION: 1. No acute intrathoracic abnormality identified. 2. Multiple mildly prominent mediastinal and hilar lymph nodes appear unchanged from comparison. Mildly enlarged 11 mm right hilar lymph node is also unchanged. No new pathologic adenopathy identified. Electronically signed by: Aleksey Sheppard M.D. 10/10/2017 10:29 AM Dictated Date/Time: 10/10/2017 10:13 AM
--- NOTE | 2017-10-10 14:38 | DIAGNOSTIC IMAGING REPORT ---
CT OF THE ABDOMEN AND PELVIS WITH CONTRAST CLINICAL HISTORY: Lymphoma. COMPARISON STUDY: CT of the abdomen and pelvis February 14, 2017. TECHNIQUE: Following IV administration of 118 mL of Optiray-320, axial images of the abdomen and pelvis were obtained from the lung bases to the proximal femurs. Images were reviewed in the axial, sagittal, and coronal planes. IV contrast was administered without complication. A dose lowering technique was utilized adhering to the principles of ALARA. Oral contrast was administered. FINDINGS: The chest CT will be reported separately. Innumerable hypodense hepatic lesions are unchanged from initial CT of February 09, 2016 and likely reflect cysts. There are no suspicious hepatic lesions. The patient is status post left nephrectomy. There is no abnormality within the nephrectomy bed. Small mesenteric lymph nodes are unchanged. No enlarged abdominal or pelvic lymph nodes are identified. Caliber and wall thickness of small and large bowel are normal. There are no suspicious osseous lesions. The appendix is normal. There is no ascites. IMPRESSION: 1. No evidence for recurrent lymphoma within the abdomen or pelvis. 2. Status post left nephrectomy. No abnormality within the nephrectomy bed. 3. Numerous hepatic cysts. 4. Fatty infiltration of the liver. Electronically signed by: Servando Palacios M.D. 10/10/2017 2:37 PM Dictated Date/Time: 10/10/2017 10:12 AM
== END | disposition home or self-care (01) ==
LOC: C.CTS 09:34
PROVIDERS: ATTEND Internal Medicine Hematology & Oncology
DX: C64.2 Malignant neoplasm of left kidney, except renal pelvis (principal); C82.03 Follicular lymphoma grade I, intra-abdominal lymph nodes; K76.89 Other specified diseases of liver

== ENCOUNTER → 2017-10-21 | Outpatient (CLI) | payer BC ==
[~2017-10-21] MED LIST changes: -OPTIRAY 320 IV PRN
[2017-10-21 13:14] LABS: ALBUMIN 3.7 gm/dl (3.4-5.0); ALT/SGPT 39 U/L (12-78); AST/SGOT 23 U/L (15-37); BLOOD UREA NITROGEN 31 mg/dl (7-18); CALCIUM 8.9 mg/dl (8.5-10.1); CARBON DIOXIDE 25 mmol/L (21-32); CREATININE 1.57 mg/dl (0.60-1.40); GLUCOSE 95 mg/dl (70-99); SODIUM 140 mmol/L (136-145)
[2017-10-21 13:19] LABS: ALKALINE PHOSPHATASE 81 U/L (45-117); TOTAL PROTEIN 7.3 gm/dl (6.4-8.2)
== END | disposition home or self-care (01) ==
LOC: C.LABMFLN 08:57
PROVIDERS: ATTEND Urology
DX: R33.9 Retention of urine, unspecified (principal); N40.1 Benign prostatic hyperplasia with lower urinary tract symptoms; N28.89 Other specified disorders of kidney and ureter; R39.15 Urgency of urination; R31.0 Gross hematuria; Z12.5 Encounter for screening for malignant neoplasm of prostate; C64.9 Malignant neoplasm of unspecified kidney, except renal pelvis

== ENCOUNTER → 2017-10-26 | Outpatient (CLI) | payer BC ==
--- NOTE | 2017-10-26 15:44 | DIAGNOSTIC IMAGING REPORT ---
CHEST 2 VIEWS ROUTINE HISTORY: 33.9 Incomplete emptying of [id number] Enlarged prostate with COMPARISON: Chest 04/26/2017. FINDINGS: No pneumothorax. No pleural effusions. Chronic elevation of the right hemidiaphragm is again noted. The heart is normal in size. Right basilar linear densities consistent with subsegmental atelectasis. Otherwise, the lungs are clear. Cholecystectomy. IMPRESSION: No significant change compared to the prior study. No acute process. Chronic elevation of the right hemidiaphragm is again noted. Electronically signed by: Danny Hansen M.D. 10/26/2017 3:43 PM Dictated Date/Time: 10/26/2017 3:41 PM
== END | disposition home or self-care (01) ==
LOC: C.RAD 15:14
PROVIDERS: ATTEND Urology
DX: Z12.5 Encounter for screening for malignant neoplasm of prostate (principal); N40.1 Benign prostatic hyperplasia with lower urinary tract symptoms; R31.0 Gross hematuria; R33.9 Retention of urine, unspecified; N28.89 Other specified disorders of kidney and ureter; C64.9 Malignant neoplasm of unspecified kidney, except renal pelvis; R39.15 Urgency of urination

== ENCOUNTER → 2017-11-14 | Outpatient (CLI) | payer BC ==
[2017-11-14 17:50] LABS: BASO % 0.4 %; BASO ABS # 0.02 K/uL (0-0.2); EOS % 6.2 %; EOS ABS # 0.28 K/uL (0-0.5); HEMATOCRIT 39.2 % (42-52); IG# 0.01 K/uL (0.00-0.02); LYMPH % 31.5 %; LYMPH ABS # 1.43 K/uL (1.2-3.4); MEAN CELL VOLUME 82.9 fL (80-100); MEAN CORPUSCULAR HEMOGLOBIN 27.5 pg (25-34); MEAN CORPUSCULAR HGB CONC 33.2 g/dl (32-36); MEAN PLATELET VOLUME 10.4 fL (7.4-10.4); MONO % 6.2 %; MONO ABS # 0.28 K/uL (0.11-0.59); NEUT % 55.5 %; NEUT ABS # 2.52 K/uL (1.4-6.5); PLATELET COUNT 154 K/uL (130-400); RED CELL DISTRIBUTION WIDTH CV 14.5 % (11.5-14.5); RED CELL DISTRIBUTION WIDTH SD 43.5 fL (36.4-46.3); WHITE BLOOD COUNT 4.54 K/uL (4.8-10.8)
[2017-11-14 19:53] LABS: ALBUMIN 3.7 gm/dl (3.4-5.0); ALKALINE PHOSPHATASE 80 U/L (45-117); ALT/SGPT 37 U/L (12-78); AST/SGOT 22 U/L (15-37); BLOOD UREA NITROGEN 29 mg/dl (7-18); CALCIUM 8.6 mg/dl (8.5-10.1); CARBON DIOXIDE 24 mmol/L (21-32); CREATININE 1.61 mg/dl (0.60-1.40); GLUCOSE 93 mg/dl (70-99); SODIUM 141 mmol/L (136-145); TOTAL PROTEIN 7.5 gm/dl (6.4-8.2)
== END | disposition home or self-care (01) ==
LOC: C.LABMFLN 15:09
PROVIDERS: ATTEND Internal Medicine Hematology & Oncology
DX: C82.03 Follicular lymphoma grade I, intra-abdominal lymph nodes (principal)

== ENCOUNTER → 2017-11-22 | Outpatient (CLI) | payer BC ==
--- NOTE | 2017-11-22 14:11 | DIAGNOSTIC IMAGING REPORT ---
ULTRASOUND-GUIDED FINE-NEEDLE ASPIRATION CLINICAL HISTORY: 2.1 x 0.7 cm left level II lymph node. COMPARISON STUDY: Ultrasound guided biopsy 10/04/2017. PROCEDURE: The risks, benefits, and alternatives to the procedure were discussed with the patient. Written informed consent was obtained. The patient was placed supine in ultrasound, and the 2.1 x 0.7 cm normal-appearing level II lymph node of the left neck was localized by ultrasound and selected for fine needle aspiration. No pathologically enlarged level II lymph nodes nodes about the left neck were identified. Mixed cystic and solid nodule of the left thyroid bed is again noted measuring up to 1.3 cm, previously biopsied. The left neck was prepped and draped in the usual sterile fashion. The nodule was aspirated under ultrasound guidance with 2 passes utilizing 25-gauge needles. Specimens were reviewed by the pathologist in real-time and deemed adequate for diagnosis. The patient tolerated the procedure well and left the department in satisfactory condition. IMPRESSION: Completed fine-needle aspiration of a nonenlarged level II lymph node of the left neck. The above report was generated using voice recognition software. It may contain grammatical, syntax or spelling errors. Electronically signed by: Aleksey Sheppard M.D. 11/22/2017 2:09 PM Dictated Date/Time: 11/22/2017 2:06 PM
== END | disposition home or self-care (01) ==
LOC: C.ULTR 12:13
PROVIDERS: ATTEND Surgery
DX: C73 Malignant neoplasm of thyroid gland (principal); C77.9 Secondary and unspecified malignant neoplasm of lymph node, unspecified

== ENCOUNTER → 2018-02-21 | Outpatient (CLI) | payer BC ==
[2018-02-21 18:21] LABS: BASO % 0.5 %; BASO ABS # 0.02 K/uL (0-0.2); EOS % 6.4 %; EOS ABS # 0.26 K/uL (0-0.5); HEMATOCRIT 41.9 % (42-52); HEMOGLOBIN 13.7 g/dL (14.0-18.0); LYMPH % 34.8 %; LYMPH ABS # 1.42 K/uL (1.2-3.4); MEAN CELL VOLUME 83.5 fL (80-100); MEAN CORPUSCULAR HEMOGLOBIN 27.3 pg (25-34); MEAN CORPUSCULAR HGB CONC 32.7 g/dl (32-36); MEAN PLATELET VOLUME 10.7 fL (7.4-10.4); MONO % 7.4 %; NEUT % 50.9 %; NEUT ABS # 2.08 K/uL (1.4-6.5); PLATELET COUNT 158 K/uL (130-400); RED CELL DISTRIBUTION WIDTH CV 14.9 % (11.5-14.5); RED CELL DISTRIBUTION WIDTH SD 45.4 fL (36.4-46.3); WHITE BLOOD COUNT 4.08 K/uL (4.8-10.8)
[2018-02-21 18:47] LABS: ALBUMIN 3.6 gm/dl (3.4-5.0); ALKALINE PHOSPHATASE 78 U/L (45-117); ALT/SGPT 36 U/L (12-78); AST/SGOT 20 U/L (15-37); BLOOD UREA NITROGEN 30 mg/dl (7-18); CALCIUM 8.6 mg/dl (8.5-10.1); CARBON DIOXIDE 28 mmol/L (21-32); CREATININE 1.57 mg/dl (0.60-1.40); GLUCOSE 102 mg/dl (70-99); POTASSIUM 4.2 mmol/L (3.5-5.1); SODIUM 138 mmol/L (136-145); TOTAL PROTEIN 7.5 gm/dl (6.4-8.2)
[2018-02-22 05:50] LABS: HEMOGLOBIN A1C 5.8 % (4.5-5.6)
== END | disposition home or self-care (01) ==
LOC: C.LABMFLN 12:37
PROVIDERS: ATTEND Internal Medicine Endocrinology, Diabetes & Metabolism
DX: C82.03 Follicular lymphoma grade I, intra-abdominal lymph nodes (principal); R73.03 Prediabetes; E89.0 Postprocedural hypothyroidism

== ENCOUNTER 2021-12-08 05:52 | Observation (INO) ==
--- NOTE | 2021-11-20 08:53 | PAT Medication Instructions ---
Medication Instructions Date of Service November 20, 2021 Home Medications Medication Instructions Recorded CPAP Supplies #1 ea 08/14/19 levothyroxine 150 mcg tablet 150 mcg PO QAM #90 tab 09/04/21 losartan 50 mg tablet 50 mg PO QAM #90 tab 11/04/21 cetirizine 10 mg tablet 10 mg PO HS melatonin 10 mg capsule 10 mg PO HS metoprolol succinate 50 mg tablet,extended release 24 hr 50 mg PO QAM montelukast 10 mg tablet 10 mg PO HS multivitamin (Daily Multi-Vitamin) 1 tab PO QAM CPAP Supplies lansoprazole 30 mg capsule,delayed release 30 mg PO QAM rosuvastatin 5 mg tablet 5 mg PO QAM acetaminophen 500 mg tablet (Tylenol Extra Strength) 1,000 mg PO HS levothyroxine 150 mcg tablet 150 mcg PO QAM diclofenac sodium 1 % topical gel 2 g TOPICAL QID PRN hydrochlorothiazide 12.5 mg tablet 25 mg PO QAM losartan 50 mg tablet 50 mg PO QAM finasteride 5 mg tablet 5 mg PO QAM STOP taking 24 hours before surgery diclofenac sodium 1 % topical gel 2 g TOPICAL QID PRN DO NOT take the morning of surgery multivitamin (Daily Multi-Vitamin) 1 tab PO QAM hydrochlorothiazide 12.5 mg tablet 25 mg PO QAM losartan 50 mg tablet 50 mg PO QAM Take morning of surgery With a small sip of water, OTHERWISE NOTHING TO EAT OR DRINK AFTER MIDNIGHT: metoprolol succinate 50 mg tablet,extended release 24 hr 50 mg PO QAM lansoprazole 30 mg capsule,delayed release 30 mg PO QAM rosuvastatin 5 mg tablet 5 mg PO QAM levothyroxine 150 mcg tablet 150 mcg PO QAM finasteride 5 mg tablet 5 mg PO QAM Take evening before surgery cetirizine 10 mg tablet 10 mg PO HS melatonin 10 mg capsule 10 mg PO HS montelukast 10 mg tablet 10 mg PO HS acetaminophen 500 mg tablet (Tylenol Extra Strength) 1,000 mg PO HS Other Notes If you have any questions please call us at [phone] or [phone] or [phone] or [phone]
--- NOTE | 2021-11-23 08:29 | Anesthesiology Consultation ---
Date of Service November 23, 2021 Assessment & Plan (1) Encounter for pre-operative examination: Chart Review Chart Review: Acceptable Risk for Surgery (pending signed cardio note and preop Covid testing results ) and Patient seen in Pre Admission Testing - Awaiting signed cardio note (Dr. Carrillo) from 08/27/21 Per PAT appt on 11/23/21, patient denies any recent travel or large group activities. No known Covid positive exposures or Covid related symptoms. No known Covid infection in the past 90 days. Pt is vaccinated for Covid. Preop Covid testing scheduled 12/04/21= will await results. Educated on importance of self quarantining, social distancing and wearing mask in public for the patient one week prior to surgery and after Covid testing done History Surgery Operation Date: 12/08/21 07:30 Proposed Procedures p Laparoscopic Robotic Assisted Radical Retropubic Prostatectomy, Possible Open, Possible Pelvic Lymph Node Dissection, Possible Suprapubic Tube Placement - Mark Reyes MD Height/Weight Height: 6 ft 2 in Weight: 142.9 kg Allergies Allergy/AdvReac Type Severity Reaction Status Date / Time [id number] Reductase AdvReac Intermediate Muscle Pain Verified 11/23/21 10:40 Inhibitor [Oxwgudp-Pnz-Bnp Reductase Inhibitor] Medications Home Medications Medication Instructions Recorded Confirmed Last Taken cetirizine 10 mg tablet 10 mg PO HS tab 04/12/19 11/23/21 07/22/20 melatonin 10 mg capsule 10 mg PO HS cap 04/12/19 11/23/21 07/22/20 metoprolol succinate 50 mg 50 mg PO QAM #30 tab 04/12/19 11/23/21 07/23/20 04:30 tablet,extended release 24 hr montelukast 10 mg tablet 10 mg PO HS tab 04/12/19 11/23/21 07/22/20 multivitamin (Daily Multi-Vitamin) 1 tab PO QAM 04/12/19 11/23/21 07/22/20 CPAP Supplies #1 ea 08/14/19 11/23/21 07/22/20 lansoprazole 30 mg capsule,delayed 30 mg PO QAM 12/21/19 11/23/21 07/23/20 04:30 release rosuvastatin 5 mg tablet 5 mg PO QAM 07/29/20 11/23/21 Unknown acetaminophen 500 mg tablet 1,000 mg PO HS tab 08/19/21 11/23/21 Unknown (Tylenol Extra Strength) levothyroxine 150 mcg tablet 150 mcg PO QAM #90 tab 09/04/21 11/23/21 Unknown diclofenac sodium 1 % topical gel 2 g TOPICAL QID PRN 10/13/21 11/23/21 Unknown hydrochlorothiazide 12.5 mg tablet 25 mg PO QAM #30 tab 10/13/21 11/23/21 Unknown losartan 50 mg tablet 50 mg PO QAM #90 tab 11/04/21 11/23/21 Unknown finasteride 5 mg tablet 5 mg PO QAM 11/18/21 11/23/21 Unknown Past Medical History Medical History Acid reflux Well controlled and stable Borderline high cholesterol BPH (benign prostatic hyperplasia) Chronic kidney disease, stage 3a History of cancer HX OF RENAL CELL CARCIONMA - LEFT SIDE- S/P LEFT NEPHRECTOMY Dx'ed 2016 - s/p XRT - no chemo History of radioactive iodine thyroid ablation History of thyroid cancer 2017- s/p thyroidectomy and radioactive ablation HTN (hypertension) Hypothyroidism Neck nodule CURRENT NECK NODULES>BEING MONITORED Pre-diabetes diet control Prostate cancer (09/16/21) Sleep apnea cpap Tachycardia [facility] CARDS>DR. WELLS Exercise / Class Metabolic Activity II 4-5 Yardwork/Stairs/Walk up hill (one flight of stairs - minimal SOB, no chest pain ) Past Family History Family History Father Prostate cancer Diabetes Cardiac disorder Colorectal cancer Mother Ovarian cancer Daughter No problems noted. Sister No problems noted. Sister No problems noted. Other Nephrolithiasis No family history of adverse response to anesthesia No family history of bleeding disorder Past Surgical History Surgical History H/O bilateral cataract extraction H/O colonoscopy with polypectomy History of cholecystectomy History of esophagogastroduodenoscopy (EGD) History of nephrectomy, left (04/08/16) + Lymph Node Dissection History of prostate biopsy (09/16/21) History of surgery lymphatic surgery History of thyroidectomy, total (08/11/16) Dr. Gaines History of transurethral resection of prostate x2 [place] teeth removed Past Anesthesia History No Hx of Anesthesia Complications and No Family Hx of Anesthesia Complications History of PONV No Hx of PONV and No Hx of Motion Sickness Social History Smoking Status: Former smoker tobacco type: cigarettes Smoking End Date: 32 YEARS AGO Hx Alcohol Use: Yes Alcohol type: beer alcohol intake frequency: a few times a week Hx Substance Use: No substance use type: does not use Review of Systems Patient denies chest pain, shortness of breath, dyspnea on exertion, cough, wheezing, palpitations. No hx of seizures, stroke, NE. No hx of blood clots or blood transfusions Physical Exam Vital Signs VITALS BP 130/80 P 67 TEMP 97.9 SP02 94% RESP 16 Constitutional no acute distress ENMT Mouth: no TMJ clicking Thyromental Distance: > or= 3.5 Finger Breadths (4.0) Mallampati Class: II Caps to front top teeth Neck neck extension not limited Respiratory normal respiratory effort; no respiratory distress Auscultation: lungs clear to auscultation bilaterally; no wheezes Cardiovascular Rate/Rhythm: regular rate and regular rhythm Heart Sounds: no murmur Vessels: no carotid bruit Musculoskeletal Spine: no pain with cervical ROM Extremities: extremities normal to inspection Psychiatric Orientation: alert Lab Results Anesthesia Preop Results Results Anesthesia Widget: WBC 5.66 K/uL (4.8-10.8) 11/23/21 Hgb 14.1 g/dL (14.0-18.0) 11/23/21 Hct 43.2 % (42-52) 11/23/21 Plt 181 K/uL (130-400) 11/23/21 Na 139 mmol/L (136-145) 11/23/21 K 4.5 mmol/L (3.5-5.1) 11/23/21 Cl 102 mmol/L (98-107) 11/23/21 CO2 31 mmol/L (21-32) 11/23/21 BUN 34 mg/dl (6-23) H 11/23/21 Creat 1.47 mg/dl (0.6-1.4) H 11/23/21 Glucose Level 94 mg/dl (70-99(Fasting)) 11/23/21 PT 11.2 Seconds (9.0-12.0) 11/23/21 INR 1.1 (0.9-1.1) 11/23/21 TSH 1.83 uIU/mL (0.30-4.50) 09/25/21 Free T4 1.10 ng/dL (0.8-1.8) 09/25/21 HA1c 5.80 % (4.5-5.6) H 09/25/21 Urine Color Yellow 11/23/21 Urine Appearance Clear 11/23/21 Urine pH 5.5 (4.5-7.5) 11/23/21 Urine Specific Bertram 1.022 (1.000-1.030) 11/23/21 Urine Protein Negative (Negative) 11/23/21 Urine Glucose (UA) Negative (Negative) 11/23/21 Urine Ketones Negative (Negative) 11/23/21 Urine Blood Negative (Negative) 11/23/21 Urine Nitrite Negative (Negative) 11/23/21 Urine Bilirubin Negative (Negative) 11/23/21 Urine Urobilinogen Negative (Negative) 11/23/21 Urine Leukocyte Esterase Negative (Negative) 11/23/21 Blood Type O Positive 11/23/21 Antibody Screen NEGATIVE 11/23/21 Testing Laboratory Results Elevated creatine - chronic and stable 09/25/21= HGB A1C: 5.80 Electrocardiogram Date: 11/23/21 Findings: + SB @ (58bpm ) and + no change from (Mar 22, 2016 per cardio ) Left axis deviation Stress Test Date: 11/22/19 Type: exercise (Echo) Resting LV Function: normal Resting RWMA: + none Valvular Disease: no significant valvular disease Negative exercise stress echo and EKG for ischemia at 89% MPHR. 7 METS achieved. Mild concentric LVH. Left atrium mildly dilated. Other Testing Femur MRI 11/03/21= 3.3 x 2.7 x 2 cm lobulated T2 hyperintense enhancing lesion within the distal diaphysis of the right femur which corresponds to the finding on bone scan of September 30, 2021 and the lesion on right femur CT of October 14, 2021. This represents a chondroid lesion and most likely reflects an enchondroma, particularly if asymptomatic. By imaging, differentiation between an enchondroma and low grade chondrosarcoma is difficult however this lesion does not have aggressive imaging characteristics. This does not reflect a metastasis. A follow-up MRI in 6 months could be obtained to ensure stability. Chest CT 10/16/2021 = multiple lymph nodes are seen in the mediastinum and bilateral bernardino, similar appearance to prior exam. Stable tiny pulmonary nodule. Moderate atherosclerotic changes. Right lower lobe atelectasis with hemidiaphragmatic elevation is seen. No evidence of consolidation. Holter monitor 08/20/21= Rhythm is sinus rhythm. Average heart rate 69 bpm. Minimum heart rate 49 bpm. Maximum heart rate 114 bpm. No significant pauses or AV block noted. Isolated APD's and couplets noted. No complex atrial arrhythmia. Frequent isolated and couplet VPD's noted. Isolated nonsustained episodes of ventricular tachycardia seen.
[~2021-12-08 05:52] MED LIST changes: -ATOR-22 PO; -BYS/5 PO; -CETI10TA84 PO; -DEXL60CA4 PO; +HEPARIN SOD 5,000 UNIT/0.5 ML VIAL SC SCH; -LEVO200T6 PO; -MONT1TAB5 PO; +Patient's ALLERGY Info needs ENTERED SCH
[2021-12-08] MEDS ORDERED: LR 15ML/HR IV SCH (06:00)
[2021-12-08] MEDS: HEPARIN SOD 5,000 UNIT/0.5 ML VIAL ONE ×2 (06:52→06:55)
--- NOTE | 2021-12-08 07:00 | History & Physical Bridge Note ---
Date of Service December 08, 2021 History & Physical Bridge Note I have examined the patient, reviewed the History & Physical and in the interval since the performance of the History & Physical I have noted the following changes of clinical significance: no changes noted
[2021-12-08] MEDS ORDERED: BUPIVACAINE 0.5 % 5 MG/1 ML MPF 30ML VIAL ONE (07:01)
[2021-12-08] MEDS ORDERED: ONDANSETRON INJ 2 MG/ML 2 ML VIAL IV PRN ×2 (07:04→13:55)
[2021-12-08] MEDS ORDERED: fentaNYL citrate 100 MCG/2 ML VIAL IV PRN (07:04)
[2021-12-08] MEDS ORDERED: PROMETHAZINE HCL 6.25 MG in SODIUM CHLORIDE 0.9% 50 ML IV PRN (07:04)
[2021-12-08] MEDS ORDERED: HYDROmorphone INJ 2 MG/ML SYR/VIAL IV PRN (07:04)
[2021-12-08] MEDS ORDERED: ATROPINE SULFATE 0.1 MG/ML 10ML SYR IV PRN (07:04)
[2021-12-08] MEDS ORDERED: ePHEDrine sulfate 50 MG/ML AMP IV PRN (07:04)
[2021-12-08] MEDS ORDERED: SUCCINYLCHOLINE CHLORIDE 20 MG/ML 10 ML VIAL IV ONE (07:14)
[2021-12-08] MEDS ORDERED: PROPOFOL IV EMULSION 10 MG/ML 20 ML VIAL IV ONE ×9 (07:14→07:19)
[2021-12-08] MEDS ORDERED: fentaNYL citrate 100 MCG/2 ML VIAL ONE (07:14)
[2021-12-08] MEDS ORDERED: DEXAMETHASONE SOD INJ 4 MG/ML VIAL ONE (07:14)
[2021-12-08] MEDS ORDERED: ROCURONIUM BROMIDE 10 MG/ML 5 ML VIAL IV ONE ×5 (07:14→10:56)
[2021-12-08] MEDS ORDERED: ONDANSETRON INJ 2 MG/ML 2 ML VIAL ONE (07:14)
[2021-12-08] MEDS ORDERED: LIDOCAINE 2% 2 ML VIAL/AMP(20MG/ML) INFIL ONE (07:14)
[2021-12-08] MEDS ORDERED: HYDROmorphone INJ 2 MG/ML SYR/VIAL ONE (07:15)
[2021-12-08] MEDS ORDERED: MIDAZOLAM HCL 1 MG/ML 2ML VIAL ONE (07:15)
[2021-12-08] MEDS ORDERED: BELLADONNA/OPIUM SUPP 60 MG SUPP PR ONE ×2 (08:04→09:12)
[2021-12-08] MEDS ORDERED: SUGAMMADEX SODIUM 200 MG/2 ML VIAL IV ONE (09:27)
--- NOTE | 2021-12-08 12:09 | Operative Report ---
PG Post Operative Report Pre & Post Diagnosis Operation Date: 12/08/21 07:30 Pre-Op Diagnosis: Prostate Cancer Post-Op Diagnosis: Prostate Cancer I identified the patient and participated in the time-out.: Yes Procedure Operation Date: 12/08/21 07:30 Actual Procedures p Laparoscopic Robotic Assisted Radical Retropubic Prostatectomy, Bilateral Pelvic Lymph Node Dissection(Not Applicable) - Mark Reyes MD Surgeon Mark Reyes MD Structures Assembler Eugene Saavedra Estimated Blood Loss 200 Findings Consistent with Post-Op Diagnosis Specimens 1. Periprostatic fat 2. Prostate and seminal vesicles 3. Left and right pelvic lymph nodes Description of Procedure The patient was identified in the preoperative holding area, appropriate informed consents were reviewed and completed, and he was transported to the operating suite. Subcutaneous heparin was administered in the pre-operative holding area. Upon arrival in the operating suite, he received appropriate antibiotics and general anesthesia. He was positioned in dorsal lithotomy, a B&O suppository was inserted after digital rectal exam, and he was prepped and draped in standard fashion. A Griffith catheter was inserted in the sterile field. A Veress needle was passed per umbilicus with uniform insufflation of the abdomen to 15mmHg. He was placed in steep Trendelenburg position. A periumbilical incision was then made to accommodate a 12mm Visiport with 10mm 0degree laparoscope. Inspection of the abdomen was carried out, and there was no evidence of traumatic entry or injury secondary to the Veress needle. After confirming a clear anterior abdominal wall, ports were subsequently placed in standard robotic prostatectomy fashion without incident. To begin the robotic portion of the case, the left lateral aspect of the sigmoid was mobilized off of the left pelvic side wall to allow the pouch of Thomas to be appropriately visualized.Of note, he has had a prior left hand-assisted lap nephrectomy and had some adhesions with the colon stuck up against the incision. I spent the first 20 minutes of the case performing enterolysis to free this area and allow complete visualization of the pelvis. I then made an incision in the pouch of Thomas, overlying the seminal vesicles. He had a significant amount of fat behind the bladder and it was quite challenging to safely dissect the vasa and SV so I aborted a posterior dissection and elected to proceed with an anterior approach The medial umbilical ligaments were then controlled with bipolar electrocautery just inferior to the umbilicus. Following cauterization, they were divided utilizing monopolar cautery. A peritoneal incision was carried from this location to the medial aspect of the internal inguinal rings bilaterally with care to avoid opening through the ring. This incision was concluded when the vas deferens was reached. Dissection of the bladder and prostate off of the posterior aspect of the pubic arch was completed allowing full visualization of the prostate. The fat overlying the prostate was removed en bloc and passed off the table as a specimen labeled "periprostatic fat". The endopelvic fascia was cleared during this portion of the procedure, and subsequently opened - first on the right and then the left. The incision through the endopelvic fascia began near the prostate-bladder junction and was carried to the apex with extreme care to preserve all lateral levator musculature as well as the periurethral musculature and sphincter complex. I additionally preserved the puboprostatic ligaments. I then controlled the DVC with a 3-0 V-lock suture in overlapping/figure of 8 fashion. He had a very wide DVC complex. The lymph node dissection was then conducted. External iliac vessels were identified on the pelvic side wall. The packet of fat and lymphatic tissue that resides just under the iliac vein was elevated and off of the vein with a split and roll technique. The packet was dissected laterally to the circumflex vein and distally to the obturator nerve which was preserved. The proximal aspect of the packet was carried towards the bifurcation of the iliac vessels. A combination of monopolar and bipolar cautery were used to assist with control. After completing the dissection on both sides, the packets were collected and passed off of the table as specimens labeled "pelvic lymph nodes".Of note, he does have a diagnosis of follicular lymphoma and he had very bulky nodes -I suspect that these are more related to his lymphoma than they are to prostate cancer. My attention then returned to the prostate, with identification of the bladder neck aided by gentle traction on the Griffith catheter and lateral to medial pressure at the presumed level of the bladder neck with the robotic instruments. An anterior cystotomy was made, the Griffith balloon deflated and the catheter guided through the incision to allow anterior retraction. I attempted to preserve maximal bladder neck musculature as I circumferentially dissected around the bladder neck.He has had TURP x2, and he has some residual intravesical tissue. I utilized a 0 Vicryl suture through the posterior intravesical prostatic tissue to elevate this and allow incision through the posterior aspect of the bladder neck. After incision through the posterior aspect of the mucosa, the dissection was carried through detrusor muscle until the bilateral ampullae of the vasa were identified. I then proceeded to transect these approximately 3 cm above the junction with the prostate and then subsequently dissected both seminal vesicles. A dissection was carried behind the prostate to the apex and as laterally as possible. An incision in the lateral prostatic fascia, And the vascular pedicles were controlled utilizing the vessel sealer device. Of note, he has not had good erections for some time and given his bilateral significant prostate cancer I e lected not to perform an aggressive nerve spare. The apical attachments of the prostate were remaining at that stage. The DVC was divided after control with bipolar cautery over the prostate. Continuous inspection from anterior and lateral views allowed me to closely follow the apical contour of the prostate and maximally preserve urethral length and tissue. The prostate was entirely freed at that point, and collected in an EndoCatch bag before being moved out of the field of vision. Hemostasis was confirmed With several additional sutures placed through the remaining DVC veins utilizing a 3 OV lock. Utilize a 2-0 Vicryl suture in [id number] fashion at the lateral apices of the bladder neck to reconstruct the bladder neck and narrow it. Care was used to avoid encroachment upon the UOsof note he is status post left nephrectomy so the right UO was of particular concern.Anastomosis of the bladder and urethra was completed utilizing a double armed V-Lock stitch. A new Griffith catheter was inserted and the anastomosis tested with irrigation. There was no evidence of leak. The robot was undocked, the specimen extracted through expansion of the nevaeh- umbilical camera port. The fascia was closed with a series of 0-PDS figure of 8 stitches. The right teacher assistant port was closed in two layers - with a figure of 8 0-Vicryl to reapproximate the fascia followed by 4-0 Monocryl to close the skin. Monocryl was used to close all other skin incisions. All wounds were dressed with Dermabond. The case was concluded and the patient taken to the PACU in stable condition. Dr. Eugene Saavedra assisted from incision to closure. I attest to the content of the Intraoperative Record and any orders documented therein. Any exceptions are noted below.
[2021-12-08 12:55] LABS: Basophils # (auto) 0.02 K/uL (0-0.2); Basophils % (auto) 0.2 %; Eosinophils # (auto) 0.01 K/uL (0-0.5); Eosinophils % (auto) 0.1 %; Hematocrit (blood only) 40.7 % (42-52); Hemoglobin 13.2 g/dL (14.0-18.0); Immature Granulocytes # (auto) 0.04 K/uL (0.00-0.02); Immature Granulocytes % (auto) 0.5 %; Lymphocytes # (auto) 1.07 K/uL (1.2-3.4); Lymphocytes % (auto) 12.6 %; Mean Corpuscular Hemoglobin 27.8 pg (25-34); Mean Corpuscular Volume 85.7 fL (80-100); Mean Platelet Volume 10.1 fL (7.4-10.4); Monocytes # (auto) 0.12 K/uL (0.11-0.59); Monocytes % (auto) 1.4 %; Neutrophils # (auto) 7.26 K/uL (1.4-6.5); Neutrophils % (auto) 85.2 %; Platelet Count 159 K/uL (130-400); RDW Coefficient of Variation 15.4 % (11.5-14.5); RDW Standard Deviation 48.5 fL (36.4-46.3); Red Blood Count 4.75 M/uL (4.7-6.1); White Blood Count 8.52 K/uL (4.8-10.8)
[2021-12-08 13:06] LABS: BUN Creatinine Ratio 20.1 (10-20); Calcium 8.5 mg/dl (8.5-10.1); Creatinine Clr Calc Pharmacy 71.9 ml/min; Est GFR (African American) 54.1 ml/min; Est GFR (Non-African American) 46.7 ml/min; Potassium 4.9 mmol/L (3.5-5.1)
[2021-12-08 13:19] LABS: Mean Corpuscular Hgb Conc 32.4 g/dL (32-36)
[2021-12-08] MEDS ORDERED: NON-FORMULARY MEDICATION (Cpap Supplies misc) SCH (13:55)
[2021-12-08] MEDS ORDERED: ACETAMINOPHEN 325 MG TAB PO PRN (13:55)
[2021-12-08] MEDS ORDERED: oxyCODONE HCL IR 5 MG TAB (IMMEDIATE RELEASE) PO PRN ×2 (13:55)
[2021-12-08] MEDS ORDERED: MoRPHine SULFATE 4 MG/ML 1 ML CARP\\VIAL IV PRN (13:55)
[2021-12-08] MEDS ORDERED: MoRPHine SULFATE 2 MG/ML CARP IV PRN (13:55)
--- NOTE | 2021-12-08 14:14 | Anesthesiology Progress Note ---
Date of Service December 08, 2021 Anesthesia Post Procedure Vital Signs Vital Signs: Temp Pulse Pulse Resp BP Pulse Ox 12/08/21 13:57 37.2 C 67 16 136/80 94 12/08/21 13:36 37.3 C 70 17 138/79 94 12/08/21 13:25 37.3 C 67 16 140/78 94 12/08/21 13:15 37.3 C 65 15 130/77 95 12/08/21 13:05 66 14 119/79 96 12/08/21 12:55 65 19 114/76 94 12/08/21 12:45 66 14 120/78 93 12/08/21 12:35 69 17 126/81 93 12/08/21 12:25 68 14 132/85 93 12/08/21 12:15 71 11 L 138/81 95 12/08/21 12:05 70 17 141/91 H 97 12/08/21 11:56 36.7 C 77 16 149/87 H 98 12/08/21 06:26 36.9 C 58 L 20 152/92 H 20 L Transfer of Care Handoff Completed per policy Notes Mental Status: alert / awake / arousable and participated in evaluation Patient Amnestic to Procedure: Yes Nausea / Vomiting: adequately controlled Pain: adequately controlled Airway Patency, RR, SpO2: stable & adequate BP & HR: stable & adequate Hydration State: stable & adequate Anesthetic Complications: no major complications apparent and Pt Satisfied with anesthetic care
[2021-12-08] MEDS: LACTATED RINGER'S 1,000 ML IV SCH ×2 (14:33→20:39)
[2021-12-08] MEDS: ceFAZolin 2000MG 2,000 MG/15 ML SYR IV SCH ×2 (17:40→23:10)
[2021-12-08] MEDS: DOCUSATE SODIUM 100 MG CAP PO SCH (20:38)
[2021-12-08] MEDS: HEPARIN SOD 5,000 UNIT/0.5 ML VIAL SQ SCH (20:39)
[2021-12-08] MEDS ORDERED: CETIRIZINE HCL 10 MG TABLET PO SCH (21:00)
[2021-12-08] MEDS ORDERED: MELATONIN 3 MG TAB PO SCH (21:00)
[2021-12-08] MEDS ORDERED: MONTELUKAST SODIUM 10 MG TABLET PO SCH (21:00)
[2021-12-09] MEDS: LACTATED RINGER'S 1,000 ML IV SCH (05:18)
[2021-12-09] MEDS ORDERED: LEVOTHYROXINE SODIUM 150 MCG TABLET PO SCH (06:30)
[2021-12-09 07:07] LABS: Eosinophils # (auto) 0.02 K/uL (0-0.5); Eosinophils % (auto) 0.2 %; Hematocrit (blood only) 38.6 % (42-52); Hemoglobin 12.6 g/dL (14.0-18.0); Immature Granulocytes # (auto) 0.03 K/uL (0.00-0.02); Immature Granulocytes % (auto) 0.3 %; Lymphocytes # (auto) 2.07 K/uL (1.2-3.4); Lymphocytes % (auto) 23.7 %; Mean Corpuscular Hemoglobin 27.9 pg (25-34); Mean Corpuscular Hgb Conc 32.6 g/dL (32-36); Mean Corpuscular Volume 85.6 fL (80-100); Mean Platelet Volume 10.3 fL (7.4-10.4); Monocytes # (auto) 0.76 K/uL (0.11-0.59); Monocytes % (auto) 8.7 %; Neutrophils # (auto) 5.87 K/uL (1.4-6.5); Neutrophils % (auto) 67.1 %; Platelet Count 168 K/uL (130-400); RDW Coefficient of Variation 15.5 % (11.5-14.5); RDW Standard Deviation 48.5 fL (36.4-46.3); Red Blood Count 4.51 M/uL (4.7-6.1); White Blood Count 8.75 K/uL (4.8-10.8)
[2021-12-09 07:30] LABS: BUN Creatinine Ratio 18.9 (10-20); Calcium 8.8 mg/dl (8.5-10.1); Creatinine Clr Calc Pharmacy 77.4 ml/min; Est GFR (African American) 59.1 ml/min; Potassium 4.8 mmol/L (3.5-5.1)
[2021-12-09] MEDS: METOPROLOL SUCC 50MG EXT REL TAB PO SCH ×2 (07:51→09:16)
[2021-12-09] MEDS: DOCUSATE SODIUM 100 MG CAP PO SCH (07:52)
[2021-12-09] MEDS: HEPARIN SOD 5,000 UNIT/0.5 ML VIAL SQ SCH (07:53)
--- NOTE | 2021-12-09 08:09 | Urology Progress Note ---
Date of Service December 09, 2021 Assessment & Plan (1) Prostate cancer: Plan: POD #1 s.p prostatectomy ambulate clear liquids likely dc home later today Admission and Anticipated Discharge Date Admission Date: December 08, 2021 Subjective doing well no major pain has been ambulatory some mild bleeding from the urethra labs stable good UoP Physical Exam Physical Exam: clear urine abd soft incisions appropriate Results & Data ([facility]) Vital Signs (Past 12 Hours) Vital Signs Temp Pulse Resp BP Pulse Ox 12/09/21 02:34 36.6 C 57 L 18 129/56 L 91 12/08/21 21:55 36.8 C 59 L 16 111/68 91 PG Care Time/CCT Total # of Minutes Spent Total Time Spent with Patient: Total time spent is greater than 50% in coordination of care (as documented) at patient's floor/unit and/or counseling patient: Coding Level of Care Code 63833 Subseq Hosp Care Lvl 2 Diagnoses Prostate cancer C61
[2021-12-09] MEDS ORDERED: hydroCHLOROthiazide 25 MG TAB PO SCH (09:00)
[2021-12-09] MEDS ORDERED: ROSUVASTATIN CALCIUM 5 MG TAB PO SCH (09:00)
[2021-12-09] MEDS ORDERED: PANTOprazole 40 MG TAB PO SCH (09:00)
[2021-12-09] MEDS ORDERED: LOSARTAN POTASSIUM 50 MG TAB PO SCH (09:00)
--- NOTE | 2021-12-09 12:04 | Discharge Summary ---
Date of Service December 09, 2021 Admission HPI Per Admitting Provider 66-year-old male with a history of [place] 4+4 = 8, high risk prostate cancer with negative metastatic evaluation. Presents for robotic prostatectomy. Admission Exam Per Admitting Provider General: Alert and oriented, no acute distress HEENT: Normocephalic, mucous membranes moist Pulmonary: Nonlabored respirations Abdomen: Nondistended Extremities: Moves all 4 spontaneously Neuro: No gross deficits Skin: Warm, dry, no rashes noted Principal Diagnosis Prostate cancer Discharge Exam 14 point review of systems negative outside of what is listed above in HPI Discharge Data Allergies Allergy/AdvReac Type Severity Reaction Status Date / Time No Known Drug Allergies Allergy Unknown Verified 12/08/21 06:16 Zhcuxtc-HDX-WoF Reductase AdvReac Intermediate Muscle Pain Verified 12/08/21 06:16 Inhibitor [Ghmcunf-Iej-Zdg Reductase Inhibitor] Procedures Performed Operation Date: 12/08/21 07:30 Actual Procedures p Laparoscopic Robotic Assisted Radical Retropubic Prostatectomy, Bilateral Pelvic Lymph Node Dissection(Not Applicable) - Mark Reyes MD Hospital Course (1) Prostate cancer: 66-year-old male with high risk prostate cancer who is status post robotic prostatectomy with bilateral pelvic lymph node dissection on 12/08/2021. He did well postoperatively. Labs were stable. Pain was well controlled. Catheter draining without issue. Stable for discharge home on postop day 1. Total Time Total Time Spent Total Time Spent (In Minutes): 5 minutes Discharge Plan Discharge Items Patient Disposition: Home - Self-Care Reason For Visit: Prostate Cancer Discharge Diagnosis: Prostate Cancer Condition on Discharge: Good Activity: Per Instructions section Lifting: No more than 25 pounds Bathing Comment: OK to shower. No tub baths or soaks. Sexual Activity: Wait until after follow-up appointment Exercise/Sports: Wait until after follow-up appointment Driving/Machine Use: Do not drive while taking prescription pain medication. Non-emergency contact: Surgeon and Urologist Call non-emergency contact if: you have any medication questions, your symptoms worsen, your pain is not controlled, your pain is worsening, you have a fever, your wound has increased redness, your wound has increased drainage and your wound pain has increased Follow-up/Referrals: Ramses Barnes PA-C [Primary Care Provider] - Eugene Saavedra MD [Physician] - 12/21/21 11:20 am [facility],Nurse [FAKE FOR SCHEDULES] - 12/14/21 9:00 am Diet: Regular Addtl Attending Provider Instructions: Please take all medications as prescribed and keep all follow-ups as scheduled. Please call our office at [phone] with any questions, concerns or need to reschedule appointments for any reason. We are happy to assist you We have sent an antibiotic to your pharmacy of choice. Please begin antibiotic as prescribed the day BEFORE your scheduled voiding trial at [facility]. Please continue antibiotic every 12 hours through the day AFTER your voiding trial. Activity: We recommend having someone with you for the first few days after surgery to help care for you. For the first 2 weeks after surgery, we would like you to get up and walk around your house. However, we recommend limit physical activity that would increase your heart rate. This will allow your body to rest and heal. Take naps if you feel tired. Don't lift anything heavier than 10 pounds, mow the law or ride a bicycle until your follow-up appointment. Please avoid long car rides. Home Care: Unless directed otherwise, drink 6 to 8 glasses of water a day (enough to keep your urine light colored). This will also help keep a healthy flow of urine. We recommend using a stool softener for the first two weeks to avoid constipation. Griffith Catheter or Suprapubic Catheter care: Keep the catheter well secured with either a leg back or leg strap with large bag. Empty your bag when it's about half full. You may notice some blood in the bag. This is normal after surgery and while the catheter is in place. Use mild soap (such as Dove or Dial) and water to wash the catheter and the head of your penis daily, or more frequently if needed. Return to your normal diet, we encourage good protein intake to promote healing. You may shower as normal. Please avoid tub baths or soaking until catheter removed and incisions well healed. Wearing sweat pants while you have the catheter is recommended, they will be more comfortable. Follow-up Your follow up appointments for having your catheter removed, and follow up with your physician should already be scheduled. If you have any questions regarding this, please contact our office. Your final pathology report will be discussed at your physician follow-up appointment. Call [facility] at [phone] right away if you have any of the following: Chest pain or trouble breathing (call 911 or go to the hospital) Fever of 101F or higher, uncontrolled vomiting Heavy bleeding, clots, or bright red blood from the catheter Catheter that falls out or stops draining Foul-smelling discharge from your catheter Redness, swelling, warmth, or increased pain at your incision site Drainage, pus, or bleeding from your incision Pending Studies at Discharge: Yes Studies:: pathology Stand-Alone Forms: My [facility], Smoking Cessation Medications and DC Order Prescriptions: New oxycodone-acetaminophen [Percocet] 5-325 mg tablet 1 tab PO Q8H PRN (Reason: pain) Qty: 7 RF: 0 docusate sodium [Colace] 100 mg capsule 100 mg PO BID Qty: 30 RF: 0 ciprofloxacin HCl 250 mg tablet 250 mg PO BID 3 Days Qty: 6 RF: 0 Continued diclofenac sodium 1 % gel 2 g topical QID PRN (Reason: Pain) RF: 0 (DME) CPAP Supplies Misc See Rx Instructions .ROUTE .MEDSUPPLY Qty: 1 RF: 0 levothyroxine 150 mcg tablet 150 mcg PO QAM Qty: 90 RF: 3 losartan 50 mg tablet 50 mg PO QAM Qty: 90 RF: 3 cetirizine 10 mg tablet 10 mg PO HS RF: 0 melatonin 10 mg capsule 10 mg PO HS RF: 0 metoprolol succinate 50 mg tablet extended release 24 hr 50 mg PO QAM Qty: 30 RF: 0 multivitamin [Daily Multi-Vitamin] tablet 1 tab PO QAM RF: 0 montelukast 10 mg tablet 10 mg PO HS RF: 0 acetaminophen [Tylenol Extra Strength] 500 mg tablet 1,000 mg PO HS RF: 0 hydrochlorothiazide 12.5 mg tablet 25 mg PO QAM Qty: 30 RF: 0 rosuvastatin 5 mg tablet 5 mg PO QAM RF: 0 lansoprazole 30 mg capsule,delayed release(DR/EC) 30 mg PO QAM RF: 0 Discontinued finasteride 5 mg tablet 5 mg PO QAM RF: 0 Discharge Orders: Discharge Order (Routine); Ordered 12/09/21 Ordered By: Eugene Saavedra Admission Data Admit Date/Time: 12/08/21 12:00 Attending Provider: Mark Reyes Admit Provider: Mark Reyes Primary Care Provider: Ramses Barnes Coding Level of Care Code D/C DAY MANAGEMENT <30 MINS Diagnoses Prostate cancer C61
== END 2021-12-09 16:19 | disposition home or self-care (01) ==
LOC: ASU 05:52 → 3W 12:00 → INTOOBSV 12:00